=== PATIENT | female | born 1945 | race Caucasian/White ===

== ENCOUNTER 2016-05-07 07:24 | Day surgery (SDC) | payer OTHER ==
[2016-05-07] VITALS (7 sets, daily range): BP systolic 92–117; BP diastolic 32–68; PULSE 65–89; RESP 16–20; TEMP 97.4–97.6; O2SAT 90–99
[~2016-05-07] VITALS: Ht 172.7 cm; Wt 53.2 kg
[~2016-05-07 07:24] MED LIST: MULTTAB67 PO
[2016-05-07] MEDS ORDERED: ceFAZolin 2 GM PREMIX 50 ML - implanted port/tunneled catheter insertion IV SCH (08:00)
[2016-05-07] MEDS ORDERED: SODIUM CHLORIDE 0.9% 1000 ML IV SCH (08:00)
[2016-05-07] MEDS ORDERED: VANCOMYCIN 1000 MG/NS 250 ML - implanted port/tunneled catheter IV SCH ×2 (08:00)
[2016-05-07] MEDS ORDERED: CHLORHEXIDINE GLUCONATE 2 % 1 PACK (2 CLOTHS) TOPICAL SCH (08:00)
[2016-05-07 08:25] LABS: APTT (PATIENT) 29.7 SEC (24.3-30.1); INTERNATIONAL NORMALIZED RATIO 1.1 RATIO
[2016-05-07] MEDS ORDERED: fentaNYL CITRATE 250 MCG/5 ML AMP ONE (09:24)
[2016-05-07] MEDS ORDERED: MIDAZOLAM HCL 5 MG/5 ML VIAL ONE (09:24)
[2016-05-07] MEDS ORDERED: LIDOCAINE 1%/EPINEPHrine 1:100,000 SOLN 20 ML VIAL ONE (09:54)
--- NOTE | 2016-05-07 10:49 | PD.RAD ---
Post Procedure Progress Note Pre Procedure Diagnosis: (1) Lung cancer Post Procedure Diagnosis: (1) Lung cancer Procedure Date: May 07, 2016 Supervising Radiologist: James Wilson Anesthesia: Local, Conscious Sedation Plan of Activity Patient to Unit: ROPU Patient Condition: Good Additional Comments: Port placed via the left subclavian due to right sided mass. port in good position OK for use See PACS Report for procedural detail/treatment James Wilson MD May 07, 2016 10:49
[2016-05-07] MEDS ORDERED: SODIUM CHLORIDE 0.9% FLUSH 5 ML FLUSH IVF PRN (11:00)
--- NOTE | 2016-05-07 13:32 | RADRPT ---
EXAM DATE/TIME: 05/07/2016 09:33 [facility] COMPARISON: No previous studies available for comparison. INDICATIONS : Patient is in need of placement of an Infusaport due to chemotherapy treatment of lung cancer. MEDICAL HISTORY : History of lumbar degeneration. SURGICAL HISTORY : History of lumbar fusion, appendectomy, tonsillectomy, hysterectomy, breast augmentation. ENCOUNTER: Initial ACUITY: 4-6 months PAIN SCORE: 0/10 FLUORO TIME: 1.1 minutes SEDATION TIME: 40 minutes ACCESS: Left subclavian vein SEDATION: 1.) 4 mg midazolam (Versed) IV 2.) 200 mcg fentanyl (Sublimaze) IV Prophylactic antibiotics were administered with appropriate pre-procedure timing. Vancomycin within 2 hours of procedure, Ancef (or alternative) within 1 hour of procedure. DEVICE: 1. 8 [place] Citizen Bard Power Port PROCEDURE : 1. Continuous pulse oximetry and EKG monitoring. 2. Intravenous conscious sedation. 3. Ultrasound guidance for venous access. 4. Fluoroscopic guided implantable central venous port placement. The patient was placed supine. The neck was prepped in sterile fashion. Full sterile technique was u sed, including cap, mask, sterile gloves and gown, and a large sterile sheet. Hand hygiene and 2% ch lorhexidine Betadine was utilized per protocol for cutaneous antisepsis with appropriate dry time for site. The skin and subcutaneous tissues were infiltrated with local anesthetic solution. Under direct ultrasound guidance, a left subclavian vein was accessed. The ultrasound images depictin g access guidance were stored and saved to PACS for permanent record. A subcutaneous pocket was crea russ using blunt dissection. The port was introduced to the pocket. The catheter tubing was fed thro ugh a subcutaneous tunnel to the venotomy site. The catheter tubing was cut to a suitable length and then was introduced through a valved Peel-Away sheath and positioned with catheter tubing tip at the cavo-atrial junction level. The pocket incision was closed with subcuticular Vicryl suture. Steri- Strips were applied. The port was flushed and locked with heparin solution per protocol. Sterile dr essing was applied to the site. The patient tolerated the procedure well. Conscious sedation was performed with the prescribed dosages and duration as above. The patient ion ated the procedure well and there were no complications. EKG and oximetry remained stable throughout the procedure. The patient was sent to post anesthesia recovery in stable condition. CONCLUSION: Uncomplicated ultrasound and fluoroscopic guided implanted central venous port catheter placement as described in detail above. An 8 [place] Citizen Power port was placed. James Wilson MD on May 07, 2016 at 13:30 Board Certified Radiologist. This report was verified electronically.
== END 2016-05-07 13:40 | disposition home or self-care (01) ==
LOC: HROP 07:24 → HRIP 07:24 → HROP 13:40
PROVIDERS: ATTEND Internal Medicine
DX: Z45.2 Encounter for adjustment and management of vascular access device (principal); C34.90 Malignant neoplasm of unspecified part of unspecified bronchus or lung; Z79.01 Long term (current) use of anticoagulants
CPT/HCPCS: 36561; 76937; 77001; 85610; 85730; 99152; 99153; C1788; J0690; J1642; J2250; J3010; J3370; J7030; J7050

== ENCOUNTER 2016-06-22 15:23 | Emergency (ER) | payer OTHER ==
[~2016-06-22] VITALS: Ht 172.7 cm; Wt 52.0 kg
[2016-06-22 15:26] VITALS: BP 90/52; PULSE 110; RESP 17; TEMP 97.6; O2SAT 98
[2016-06-22] MEDS ORDERED: DEXA4TAB PO (15:45)
[2016-06-22] MEDS ORDERED: OXYC-432 PO (15:45)
[2016-06-22] MEDS ORDERED: PROC10TA PO (15:45)
[2016-06-22] MEDS ORDERED: ZOFR8TAB PO (15:45)
[2016-06-22] MEDS ORDERED: TRAM50TA PO (15:45)
[2016-06-22] MEDS ORDERED: SODIUM CHLORID 0.9% 500 ML INJ 500 ML IV ONE (15:45)
--- NOTE | 2016-06-22 15:54 | PD ---
HPI Chief Complaint: General Weakness Time Seen by Provider: 15:47 Travel History International Travel<30 days: No Contact w/Intl Traveler<30days: No Traveled to known affect area: No History of Present Illness HPI 70 year old female presents to the emergency department for evaluation of generalized weakness. Patient states this has been ongoing for a few months, but her son made her come in today to get it checked out. Patient is undergoing chemotherapy for non small cell lung CA. She states she stopped radiation 2 weeks ago. Patient's oncologist is Dr. Rebolledo. Patient denies any fevers, chest pain, SOB, abdominal pain, nausea, vomiting, diarrhea. She denies any headache or syncopal episodes. She denies any recent fall. Patient states she is not eating. PFSH Past Medical History Cancer: Yes (lung) Cardiovascular Problems: No Chemotherapy: Yes (2 weeks ago) Diabetes: No Endocrine: No Gastrointestinal Disorders: No Genitourinary: No Hepatitis: No Hiatal Hernia: No Hypertension: No Immune Disorder: No Medical other: No Musculoskeletal: Yes (HX MULTIPLE INJURIES) Neurologic: No Psychiatric: No Reproductive: No Respiratory: Yes (lung ca) Immunizations Current: Yes Thyroid Disease: No ?: Not Past Surgical History Abdominal Surgery: Yes (APPENDECTOMY) AICD: No Gynecologic Surgery: Yes (HYSTERECTOMY) Hysterectomy: Yes Joint Replacement: No Oral Surgery: Yes (TONSILECTOMY) Pacemaker: No Thoracic Surgery: Yes (breast implants) Other Surgery: Yes Social History Alcohol Use: No Tobacco Use: No Substance Use: No Allergies-Medications (Allergen,Severity, Reaction): Coded Allergies: No Known Allergies (Unverified , 05/07/16) Reported Meds & Prescriptions Reported Meds & Active Scripts Active Reported Dexamethasone 4 Mg Tab 4 Mg PO DIRECTED Zofran (Ondansetron HCl) 8 Mg Tab 8 Mg PO TID Oxycodone-Acetaminophen 5-325 mg Tab 1 Tab PO Q4H PRN Tramadol (Tramadol HCl) 50 Mg Tab 50 Mg PO Q4H PRN Prochlorperazine Maleate 10 Mg Tab 10 Mg PO Q4H PRN Review of Systems Except as stated in HPI: all other systems reviewed are Neg Physical Exam Narrative GENERAL: Thin elderly female patient, ambulatory and in no acute distress. Afebrile. SKIN: Focused skin assessment warm/dry. HEAD: Normocephalic. Atraumatic. EYES: No scleral icterus. No injection or drainage. NECK: Supple, trachea midline. No JVD or lymphadenopathy. CARDIOVASCULAR: Regular rate and rhythm without murmurs, gallops, or rubs. RESPIRATORY: Breath sounds equal bilaterally. No accessory muscle use. Lung sounds are clear to auscultation throughout. GASTROINTESTINAL: Abdomen soft and nondistended. She does have epigastric tenderness to palpation. MUSCULOSKELETAL: No cyanosis, or edema. BACK: Nontender without obvious deformity. No CVA tenderness. Data Data Last Documented VS Vital Signs Date Time Temp Pulse Resp B/P Pulse Ox O2 Delivery O2 Flow Rate FiO2 06/22/16 16:05 18 97 Nasal Cannula 2 06/22/16 15:26 97.6 110 90/52 Orders Electrocardiogram (06/22/16 ) Complete Blood Count With Diff (06/22/16 15:44) Comprehensive Metabolic Panel (06/22/16 15:44) Magnesium (Mg) (06/22/16 15:44) Ckmb (Isoenzyme) Profile (06/22/16 15:44) Troponin I (06/22/16 15:44) Urinalysis - C+S If Indicated (06/22/16 15:44) Chest, Single Ap (06/22/16 15:44) Ecg Monitoring (06/22/16 15:44) Iv Access Insert/Monitor (06/22/16 15:44) Oximetry (06/22/16 15:44) Sodium Chlorid 0.9% 500 Ml Inj (Ns 500 M (06/22/16 15:45) Lipase (06/22/16 15:44) Ct Abd/Pel W Iv Contrast(Rout) (06/22/16 ) Sodium Chlor 0.9% 1000 Ml Inj (Ns 1000 M (06/22/16 16:00) Iohexol 350 Inj (Omnipaque 350 Inj) (06/22/16 17:47) Sodium Chlor 0.9% 1000 Ml Inj (Ns 1000 M (06/22/16 18:15) Potassium Chloride (Kcl) (06/22/16 18:15) Potassium Chloride (Kcl) (06/22/16 18:15) Labs Laboratory Tests Test 06/22/16 06/22/16 15:45 17:03 White Blood Count 10.8 TH/MM3 Red Blood Count 3.13 MIL/MM3 Hemoglobin 8.2 GM/DL Hematocrit 25.0 % Mean Corpuscular Volume 79.6 FL Mean Corpuscular Hemoglobin 26.3 PG Mean Corpuscular Hemoglobin 33.0 % Concent Red Cell Distribution Width 17.5 % Platelet Count 204 TH/MM3 Mean Platelet Volume 7.8 FL Neutrophils (%) (Auto) 80.9 % Lymphocytes (%) (Auto) 7.6 % Monocytes (%) (Auto) 10.5 % Eosinophils (%) (Auto) 0.8 % Basophils (%) (Auto) 0.2 % Neutrophils # (Auto) 8.7 TH/MM3 Lymphocytes # (Auto) 0.8 TH/MM3 Monocytes # (Auto) 1.1 TH/MM3 Eosinophils # (Auto) 0.1 TH/MM3 Basophils # (Auto) 0.0 TH/MM3 CBC Comment DIFF FINAL Differential Comment Sodium Level 129 MEQ/L Potassium Level 3.1 MEQ/L Chloride Level 91 MEQ/L Carbon Dioxide Level 29.0 MEQ/L Anion Gap 9 MEQ/L Blood Urea Nitrogen 10 MG/DL Creatinine 0.60 MG/DL Estimat Glomerular Filtration 99 ML/MIN Rate Random Glucose 123 MG/DL Calcium Level 8.4 MG/DL Magnesium Level 1.7 MG/DL Total Bilirubin 0.2 MG/DL Aspartate Amino Transf 8 U/L (AST/SGOT) Alanine Aminotransferase 25 U/L (ALT/SGPT) Alkaline Phosphatase 99 U/L Total Creatine Kinase 15 U/L Troponin I LESS THAN 0.02 NG/ML Total Protein 6.3 GM/DL Albumin 2.3 GM/DL Lipase 34 U/L Urine Color YELLOW Urine Turbidity CLEAR Urine pH 7.5 Urine Specific [place] 1.000 Urine Protein 30 mg/dL Urine Glucose (UA) NEG mg/dL Urine Ketones NEG mg/dL Urine Occult Blood NEG Urine Nitrite NEG Urine Bilirubin NEG Urine Urobilinogen 2.0 MG/DL Urine Leukocyte Esterase NEG Urine RBC 1 /hpf Urine WBC 2 /hpf Urine Squamous Epithelial 1 /hpf Cells Urine Bacteria RARE /hpf Urine Mucus FEW /lpf Microscopic Urinalysis Comment CULT NOT INDICATED MDM Medical Decision Making Medical Screen Exam Complete: Yes Emergency Medical Condition: Yes Medical Record Reviewed: Yes Interpretation(s) chest x-ray - CONCLUSION: 1. Large mass upper right hemithorax similar in appearance to recent spot films from a Olvgni-z-Oghc placement in April. Basilar atelectasis. CT abdomen/pelvis - CONCLUSION: 1. No acute findings within the abdomen and pelvis. Differential Diagnosis dehydration vs. electrolyte abnormality vs. pneumonia vs. intraabdominal abnormality Narrative Course 70 year old female presents to the emergency department for generalized weakness over several months. She is currently undergoing chemotherapy for lung CA. Patient does have epigastric tenderness to palpation. EKG, CBC, CMP, Lipase, Magnesium, CK, Troponin, UA, chest x-ray, CT abdomen/pelvis are ordered and pending. Patient is given 1 L NS IV bolus. EKG shows sinus tachycardia, HR 106, no acute ST changes. CBC shows HGB 8.2, HCT 25.0. CMP shows hyponatremia of 129, hypokalemia 3.1. Lipase is 34. CK is 15. Troponin is less than 0.02. Magnesium is 1.7. UA is negative for acute infection. Chest x-ray shows large mass upper right hemithorax similar in appearance to recent spot films from a Coecol-i-Vajb placement in April. Basilar atelectasis.. Ct abdomen/pelvis shows no acute findings in the abdomen/ pelvis. Patient is given 2nd liter NS bolus and potassium 50 meq PO. The son at bedside wants patient to be admitted due to decreased appetite. He states he has talked to Dr. Rebolledo about this who made medication changes, but his mother still has no appetite. I discussed this with the patient who is adamant that she wants to go home and be discharged. Based on laboratory and imaging findings, this is reasonable. She is adamant that she does not want to be admitted. She is to follow up with Dr. Rebolledo or return for any worsening of symptoms. She verbalizes agreement and understanding. Diagnosis Primary Impression: Lung cancer Qualified Code: C34.11 - Malignant neoplasm of upper lobe of right lung Additional Impressions: Generalized weakness Decrease in appetite Referrals: Oncologist 2 days Patient Instructions: General Instructions, Non-Small Cell Lung Cancer (ED), Weakness (ED) Additional Instructions: Follow up with Dr. Rebolledo. Return to the emergency department for any acute, worsening of symptoms. Med/Other Pt SpecificInfo: No Change to Meds Disposition: 01 DISCHARGE HOME Condition: Stable RanjanHeather RODAS Jun 22, 2016 15:54
[2016-06-22 15:56] VITALS: O2SAT 97
[2016-06-22] MEDS ORDERED: SODIUM CHLOR 0.9% 1000 ML INJ 1,000 ML IV ONE ×2 (16:00→18:15)
[2016-06-22 16:10] LABS: AUTOMATED NEUTROPHIL # 8.7 TH/MM3 (1.8-7.7); BASOPHIL % 0.2 % (0.0-2.0); EOSINOPHIL # 0.1 TH/MM3 (0-0.4); EOSINOPHIL % 0.8 % (0.0-4.0); HEMO FLAGS DIFF FINAL; LYMPH % 7.6 % (9.0-44.0); LYMPHOCYTE # 0.8 TH/MM3 (1.0-4.8); MEAN CELL VOLUME 79.6 FL (80.0-100.0); MEAN CORPUSCULAR HEMOGLOBIN 26.3 PG (27.0-34.0); MONO % 10.5 % (0.0-8.0); NEUT % 80.9 % (16.0-70.0); PLATELET COUNT 204 TH/MM3 (150-450); RED BLOOD COUNT 3.13 MIL/MM3 (4.00-5.30); RED CELL DISTRIBUTION WIDTH 17.5 % (11.6-17.2); WHITE BLOOD COUNT 10.8 TH/MM3 (4.0-11.0)
[2016-06-22 16:21] LABS: ANION GAP 9 MEQ/L (5-15); AST (GOT) 8 U/L (15-37); BLOOD UREA NITROGEN 10 MG/DL (7-18); CHLORIDE 91 MEQ/L (98-107); GLOMERULAR FILTRATION RATE 99 ML/MIN (>89); MAGNESIUM 1.7 MG/DL (1.5-2.5); POTASSIUM 3.1 MEQ/L (3.5-5.1); SODIUM (NA) 129 MEQ/L (136-145)
[2016-06-22 16:26] LABS: ALKALINE PHOSPHATASE 99 U/L (45-117); ALT (GPT) 25 U/L (10-53); TOTAL BILIRUBIN ADULT 0.2 MG/DL (0.2-1.0)
[2016-06-22 16:29] LABS: CREATINE KINASE 15 U/L (26-192)
--- NOTE | 2016-06-22 16:53 | RADRPT ---
EXAM DATE/TIME: 06/22/2016 16:01 [facility] COMPARISON: [id number] PLCMT, POWERPORT, W US, LEFT, May 07, 2016, 9:33. INDICATIONS : Shortness of breath. MEDICAL HISTORY : None. SURGICAL HISTORY : None. ENCOUNTER: Initial ACUITY: 1 day PAIN SCORE: 0/10 LOCATION: Bilateral chest FINDINGS: Left Pbodjq-f-Oliw tip is in the superior vena cava. There is a large mass in the upper right hemitho rax which is similar to the finding on Ghptza-i-Xcou placement from May 07. Calcified breast imp lants present. Minimal basilar density noted. No pneumothorax. CONCLUSION: 1. Large mass upper right hemithorax similar in appearance to recent spot films from a Fabrde-d-Oacu placement in April. Basilar atelectasis. Jovany Muniz MD on June 22, 2016 at 16:50 Board Certified Radiologist. This report was verified electronically.
[2016-06-22 17:31] LABS: BACTERIA, URINE RARE /hpf; BLOOD, URINE NEG (NEG); COMMENT (UR) CULT NOT INDICATED; CULTURE IF INDICATED CULT NOT INDICATED; GLUCOSE,URINE NEG (NEG); KETONE, URINE NEG (NEG); MUCUS URINE FEW /lpf (OCC); NITRITE,URINE NEG (NEG); PH, URINE 7.5 (5.0-8.5); SQUAMOUS EPITHELIAL CELL URINE 1 /hpf (0-5); URINE COLOR YELLOW (YELLW/STRAW)
[2016-06-22] MEDS ORDERED: IOHEXOL 350 MG/ML 10 ML VIAL (for RAD DIAG) IV ONE (17:47)
--- NOTE | 2016-06-22 17:59 | RADRPT ---
EXAM DATE/TIME: 06/22/2016 17:24 [facility] COMPARISON: No previous studies available for comparison. INDICATIONS : Loss of appetite, nausea, weakness. IV CONTRAST: 85 cc Omnipaque 350 (iohexol) IV ORAL CONTRAST: No oral contrast ingested. RADIATION DOSE: 9.96 CTDIvol (mGy) MEDICAL HISTORY : Carcinoma, lung. SURGICAL HISTORY : Appendectomy. Hysterectomy. ENCOUNTER: Initial ACUITY: 2 weeks PAIN SCALE: 0/10 LOCATION: abdomen. TECHNIQUE: Volumetric scanning of the abdomen and pelvis was performed. Using automated exposure control and ad justment of the mA and/or kV according to patient size, radiation dose was kept as low as reasonably achievable to obtain optimal diagnostic quality images. FINDINGS: There is minimal basilar atelectasis. Densely calcified breast implant capsules. No acute findings in the liver, spleen, adrenals, kidneys or pancreas. Tiny bilateral renal cysts. No calcified gallstones or biliary ductal dilatation. No bowel obstruction, free fluid or free air. No adenopathy. Postoperative laminectomy lower lumbar s pine. Minimal scoliosis. Chronic appearing compression deformity L1 on the left. CONCLUSION: 1. No acute findings within the abdomen and pelvis. Jovany Muniz MD on June 22, 2016 at 17:54 Board Certified Radiologist. This report was verified electronically.
[2016-06-22] MEDS ORDERED: POTASSIUM CHLORIDE 10 MEQ CONTROLLED RELEASE TAB PO ONE (18:15)
[2016-06-22] MEDS ORDERED: POTASSIUM CHLORIDE 20 MEQ CONTROLLED RELEASE TAB PO ONE (18:15)
[2016-06-22 19:06] VITALS: BP 105/51; PULSE 99; RESP 15; O2SAT 98
--- NOTE | 2016-06-23 15:36 | EKG ---
Date Performed: 06/22/2016 Time Performed: 15:45:10 PTAGE: 70 years EKG: SINUS TACHYCARDIA When compared to previous tracing, no significant change. ABNORMAL RHYTHM ECG PREVIOUS TRACING : 02/09/2016 13.19 DOCTOR: Dev Lawson Interpretating Date/Time 06/23/2016 15:35:48
== END 2016-06-22 20:30 | disposition home or self-care (01) ==
LOC: NEPC 15:23
DX: C34.11 Malignant neoplasm of upper lobe, right bronchus or lung (principal); R53.1 Weakness; R63.0 Anorexia; R00.0 Tachycardia, unspecified; Z92.21 Personal history of antineoplastic chemotherapy
CPT/HCPCS: 71010; 74177; 80053; 81001; 82550; 83690; 83735; 84484; 85025; 93005; 96360; 96361; 99285; J1642; J7030; Q9967

== ENCOUNTER 2016-07-23 15:45 | Inpatient (IN) | payer OTHER, MEDICARE ==
[~2016-07-23] VITALS: Ht 172.7 cm; Wt 50.0 kg
[2016-07-23] VITALS (9 sets, daily range): BP systolic 90–120; BP diastolic 42–57; PULSE 87–100; RESP 16–18; TEMP 97.9–99.8; O2SAT 92–99
[~2016-07-23 15:45] MED LIST changes: +DEXA4TAB PO; -MULTTAB67 PO; +OXYC-432 PO; +PROC10TA PO; +TRAM50TA PO; +ZOFR8TAB PO
--- NOTE | 2016-07-23 16:37 | PD ---
HPI Chief Complaint: Abnormal Results Time Seen by Provider: 15:53 Travel History International Travel<30 days: No Contact w/Intl Traveler<30days: No Traveled to known affect area: No History of Present Illness HPI 71-year-old female complaining generalized malaise and weakness and poor appetite. Patient has history of has history of non-small cell lung CVA, COPD and anemia. Patient is on chemotherapy. Patient states that she has not feeling well recently and has poor appetite. Patient has increasing lethargy, generalized malaise and weakness for the past few days. Patient was seen by Dr. Rebolledo, her oncologist today and advised to have blood transfusion and admitted for IV hydration. Patient was receiving blood transfusion over the oncology unit and started having hypotension. Blood pressure was in the 80s. Patient was transferred to [place] emergency room for evaluation and admission. Patient denies any headache. Patient has recurrent chest pain secondary to carcinoma and has been taking Percocet for pain. Patient denies any shortness of breath. Patient denies abdominal pain. Patient denies any nausea vomiting diarrhea. Patient denies any focal weakness or numbness of extremity. PFSH Past Medical History Cancer: Yes (lung) Cardiovascular Problems: No Chemotherapy: Yes (2 weeks ago) Diabetes: No Diminished Hearing: No Endocrine: No Gastrointestinal Disorders: No Genitourinary: No Hepatitis: No Hiatal Hernia: No Hypertension: No Immune Disorder: No Musculoskeletal: Yes (HX MULTIPLE INJURIES) Neurologic: No Psychiatric: No Reproductive: No Respiratory: Yes (lung ca) Immunizations Current: Yes Thyroid Disease: No Tetanus Vaccination: > 5 Years Influenza Vaccination: No ?: Not Past Surgical History Abdominal Surgery: Yes (APPENDECTOMY) AICD: No Gynecologic Surgery: Yes (HYSTERECTOMY) Hysterectomy: Yes Joint Replacement: No Oral Surgery: Yes (TONSILECTOMY) Pacemaker: No Thoracic Surgery: Yes (breast implants) Other Surgery: Yes Social History Alcohol Use: No Tobacco Use: Yes Substance Use: No Allergies-Medications (Allergen,Severity, Reaction): Coded Allergies: No Known Allergies (Unverified , 06/22/16) Reported Meds & Prescriptions Reported Meds & Active Scripts Active Reported Dexamethasone 4 Mg Tab 4 Mg PO DIRECTED Zofran (Ondansetron HCl) 8 Mg Tab 8 Mg PO TID Oxycodone-Acetaminophen 5-325 mg Tab 1 Tab PO Q4H PRN Tramadol (Tramadol HCl) 50 Mg Tab 50 Mg PO Q4H PRN Prochlorperazine Maleate 10 Mg Tab 10 Mg PO Q4H PRN Review of Systems General / Constitutional: No: Fever Eyes: No: Visual changes HENT: No: Headaches Cardiovascular: Positive: Chest Pain or Discomfort Respiratory: No: Shortness of Breath Gastrointestinal: No: Abdominal Pain Genitourinary: No: Dysuria Musculoskeletal: No: Pain Skin: No Rash Neurologic: No: Weakness Psychiatric: No: Depression Endocrine: No: Polydipsia Hematologic/Lymphatic: No: Easy Bruising Physical Exam Narrative GENERAL: Well-nourished, well-developed patient. SKIN: Focused skin assessment warm/dry. Patient is pale. HEAD: Normocephalic. EYES: No scleral icterus. No injection or drainage. NECK: Supple, trachea midline. No JVD or lymphadenopathy. CARDIOVASCULAR: Regular rate and rhythm without murmurs, gallops, or rubs. RESPIRATORY: Breath sounds equal bilaterally. No accessory muscle use. GASTROINTESTINAL: Abdomen soft, non-tender, nondistended. MUSCULOSKELETAL: No cyanosis, or edema. BACK: Nontender without obvious deformity. No CVA tenderness. Neurologic exam: Patient's awake and alert oriented 3. No obvious focal neurological deficit. Data Data Last Documented VS Vital Signs Date Time Temp Pulse Resp B/P Pulse Ox O2 Delivery O2 Flow Rate FiO2 07/23/16 16:05 Room Air 07/23/16 15:59 97.9 87 18 90/54 Orders Admit Order (Ed Use Only) (07/23/16 16:14) Ns + Kcl Inj (07/23/16 16:30) [facility] Medical Decision Making Medical Screen Exam Complete: Yes Emergency Medical Condition: Yes Medical Record Reviewed: Yes Interpretation(s) Laboratory done yesterday shows hemoglobin 7.8 hematocrit 23.7. WBC 2.9. Sodium 129. Potassium 3.3. Chloride 90. Differential Diagnosis Differential diagnosis including anemia, electrolyte abnormality, dehydration. Narrative Course 71-year-old female with generalized malaise and weakness lethargy. Blood test done today at the oncology center shows anemia and hyponatremia and hypokalemia. Patient will be admitted to the oncologist and will receive blood transfusion and IV fluid and potassium and sodium replacement. Diagnosis Primary Impression: Severe anemia Additional Impressions: Hyponatremia Hypokalemia Randall Diaz MD July 23, 2016 16:37
[2016-07-23] MEDS: NS + KCL 20 MEQ INJ 1,000 ML IV SCH ×2 (16:58→23:22)
[2016-07-23] MEDS ORDERED: NYST1000 SWISH-SWAL (17:14)
[2016-07-23] MEDS ORDERED: ONDANSETRON HCL 4 MG/2 ML VIAL IV PRN (18:30)
[2016-07-23] MEDS ORDERED: SODIUM CHLORIDE 0.9% FLUSH 10 ML FLUSH IVF PRN (18:30)
[2016-07-23] MEDS ORDERED: ACETAMINOPHEN 325 MG TAB PO PRN (18:30)
[2016-07-23] MEDS ORDERED: SODIUM CHLOR 0.9% 250 ML INJ 250 ML IV ONE (18:30)
[2016-07-23] MEDS: SODIUM CHLORIDE 0.9% FLUSH 10 ML FLUSH IV FLUSH SCH (21:14)
[2016-07-24] VITALS (10 sets, daily range): BP systolic 83–106; BP diastolic 42–57; PULSE 75–93; RESP 15–20; TEMP 98.1–99.5; O2SAT 92–97
[2016-07-24] MEDS: SODIUM CHLOR 0.9% 1000 ML INJ 1,000 ML IV SCH ×2 (00:41→23:49)
[2016-07-24] MEDS: ENOXAPARIN SODIUM 30 MG/0.3 ML SYRINGE SQ SCH (00:46)
[2016-07-24] MEDS ORDERED: SODIUM CHLORIDE 0.9% FLUSH 10 ML FLUSH IV FLUSH PRN ×2 (03:30)
[2016-07-24 05:25] LABS: AUTOMATED NEUTROPHIL # 1.8 TH/MM3 (1.8-7.7); BASOPHIL % 0.2 % (0.0-2.0); EOSINOPHIL % 0.6 % (0.0-4.0); HEMO FLAGS DIFF FINAL; LYMPH % 17.7 % (9.0-44.0); LYMPHOCYTE # 0.6 TH/MM3 (1.0-4.8); MEAN CELL VOLUME 84.9 FL (80.0-100.0); MEAN CORPUSCULAR HEMOGLOBIN 28.7 PG (27.0-34.0); MEAN CORPUSCULAR HGB CONC 33.8 % (32.0-36.0); MONO % 23.9 % (0.0-8.0); NEUT % 57.6 % (16.0-70.0); PLATELET COUNT 231 TH/MM3 (150-450); RED BLOOD COUNT 3.65 MIL/MM3 (4.00-5.30); RED CELL DISTRIBUTION WIDTH 18.8 % (11.6-17.2); WHITE BLOOD COUNT 3.2 TH/MM3 (4.0-11.0)
[2016-07-24 06:17] LABS: ALKALINE PHOSPHATASE 102 U/L (45-117); ALT (GPT) 24 U/L (10-53); ANION GAP 8 MEQ/L (5-15); AST (GOT) 14 U/L (15-37); BICARBONATE 29.4 MEQ/L (21.0-32.0); BLOOD UREA NITROGEN 7 MG/DL (7-18); CHLORIDE 97 MEQ/L (98-107); GLOMERULAR FILTRATION RATE 189 ML/MIN (>89); SODIUM (NA) 134 MEQ/L (136-145); TOTAL BILIRUBIN ADULT 0.4 MG/DL (0.2-1.0)
[2016-07-24 06:48] LABS: POTASSIUM 2.9 MEQ/L (3.5-5.1)
--- NOTE | 2016-07-24 07:33 | RADRPT ---
EXAM DATE/TIME: 07/24/2016 06:57 [facility] COMPARISON: CHEST SINGLE AP, June 22, 2016, 16:01. INDICATIONS : Lethargy. Mild shortness of breath. MEDICAL HISTORY : Carcinoma, lung. SURGICAL HISTORY : Appendectomy. Hysterectomy. ENCOUNTER: Subsequent ACUITY: 2 days PAIN SCORE: 0/10 LOCATION: Bilateral chest FINDINGS: A single view of the chest demonstrates large mass with adjacent consolidation. Left-sided Infuse-a-P ort catheter are unchanged. Lung bases are clear. Osseous structures are intact. CONCLUSION: 1. Large mass again seen within the right upper lobe. 2. There is some new adjacent consolidation right upper lobe. Eran Vargas MD on July 24, 2016 at 7:31 Board Certified Radiologist. This report was verified electronically.
[2016-07-24] MEDS: DEXAMETHASONE 4 MG TAB PO SCH ×2 (09:35→22:06)
[2016-07-24] MEDS: MEGESTROL ACETATE SUSP 400 MG/10 ML CUP PO SCH (09:35)
[2016-07-24] MEDS: SODIUM CHLORIDE 0.9% FLUSH 10 ML FLUSH IV FLUSH SCH ×2 (09:35→22:06)
[2016-07-24] MEDS: POTASSIUM CHLOR 20 MEQ PREMIX 100 ML IV SCH ×2 (09:36→12:04)
--- NOTE | 2016-07-24 20:04 | PD.ONC.PN ---
Subjective Subjective Remarks Pt seen and examined earlier today and this note reflects that encounter. Tmax 99.8 overnight. Feels better after getting the blood. No complaints. Wants to go home. Objective Data Date Time Temp Pulse Resp B/P Pulse Ox O2 Delivery O2 Flow Rate FiO2 07/24/16 17:35 95 21 07/24/16 15:00 98.1 85 20 96/52 96 07/24/16 12:00 98.7 75 20 106/53 95 07/24/16 10:45 96 07/24/16 08:45 93 07/24/16 08:00 99.5 91 20 87/47 97 07/24/16 08:00 88/42 07/24/16 07:59 89 83/56 07/24/16 04:00 98.6 91 18 93/44 92 07/24/16 03:56 93 21 07/23/16 23:55 99.0 98 18 104/46 93 07/23/16 21:39 99.7 97 16 96/47 98 07/23/16 21:06 99.8 96 16 97/46 07/23/16 20:58 97 07/24/16 07/24/16 07/24/16 07:00 15:00 23:00 Intake Total 1055 ml Output Total 600 ml 700 ml Balance 455 ml -700 ml Result Diagram: 07/24/160 07/24/16439 Laboratory Results Laboratory Tests Test 07/24/16 04:40 White Blood Count 3.2 TH/MM3 Red Blood Count 3.65 MIL/MM3 Hemoglobin 10.5 GM/DL Hematocrit 31.0 % Mean Corpuscular Volume 84.9 FL Mean Corpuscular Hemoglobin 28.7 PG Mean Corpuscular Hemoglobin 33.8 % Concent Red Cell Distribution Width 18.8 % Platelet Count 231 TH/MM3 Mean Platelet Volume 7.9 FL Neutrophils (%) (Auto) 57.6 % Lymphocytes (%) (Auto) 17.7 % Monocytes (%) (Auto) 23.9 % Eosinophils (%) (Auto) 0.6 % Basophils (%) (Auto) 0.2 % Neutrophils # (Auto) 1.8 TH/MM3 Lymphocytes # (Auto) 0.6 TH/MM3 Monocytes # (Auto) 0.8 TH/MM3 Eosinophils # (Auto) 0.0 TH/MM3 Basophils # (Auto) 0.0 TH/MM3 CBC Comment DIFF FINAL Differential Comment Sodium Level 134 MEQ/L Potassium Level 2.9 MEQ/L Chloride Level 97 MEQ/L Carbon Dioxide Level 29.4 MEQ/L Anion Gap 8 MEQ/L Blood Urea Nitrogen 7 MG/DL Creatinine 0.34 MG/DL Estimat Glomerular Filtration 189 ML/MIN Rate Random Glucose 105 MG/DL Calcium Level 8.1 MG/DL Total Bilirubin 0.4 MG/DL Aspartate Amino Transf 14 U/L (AST/SGOT) Alanine Aminotransferase 24 U/L (ALT/SGPT) Alkaline Phosphatase 102 U/L Total Protein 5.6 GM/DL Albumin 1.8 GM/DL Imaging Studies Last 24 hours Impressions Chest X-Ray 07/24/16 0700 Signed Impressions: Service Date/Time: Sunday, July 24, 2016 06:57 - CONCLUSION: 1. Large mass again seen within the right upper lobe. 2. There is some new adjacent consolidation right upper lobe. Eran Vargas MD Administered Medications Medications (Trade) Dose Ordered Sig/Khanh Route PRN Reason Start Time Stop Time Status Last Admin Dose Admin Acetaminophen (Tylenol) 650 mg Q4H PRN PO Temp>101F, Headache 07/23/16 18:30 07/23/16 21:12 Sodium Chloride (NS Flush) 2 ml BID IV FLUSH 07/23/16 21:00 07/24/16 09:35 Megestrol Acetate (Megace Liq) 400 mg DAILY PO 07/24/16 09:00 07/24/16 09:35 Enoxaparin Sodium 30 mg 30 mg Q24H SQ 07/24/16 00:00 07/24/16 00:46 Sodium Chloride (NS 1000 ml Inj) 1,000 ml @ 42 mls/hr [id number] IV 07/24/16 00:00 07/24/16 00:41 Dexamethasone (Decadron) 4 mg Q12HR PO 07/24/16 09:00 07/24/16 09:35 Sodium Chloride (NS Flush) 5 ml UNSCH PRN IV FLUSH NEEDED 07/24/16 03:30 07/24/16 04:43 Objective Remarks GENERAL: Older female, sitting up in bed in no distress. SKIN: Warm and dry. HEAD: Normocephalic. EYES: No injection or drainage. NECK: Supple, trachea midline. CARDIOVASCULAR: +S1/S2. RESPIRATORY: Diminished on the R side. Breathing unlabored. GASTROINTESTINAL: Abdomen soft, non-tender, nondistended. EXTREMITIES: No cyanosis, or edema. NEUROLOGICAL: A&Ox3. Normal speech. Moving extremities. Assessment/Plan Problem List: (1) Lung cancer Status: Acute Plan: -- NSCLC diagnosed in December 2015. -- She has been getting concurrent chemo and XRT outpatient. -- Last chemotherapy with carboplatin was /. -- Lately has had worsening performance status. Decreased appetite. -- Admitted for hypotension while she was getting blood transfusion. (2) Generalized weakness Status: Acute (3) Decrease in appetite Status: Acute (4) Hypokalemia Status: Acute (5) Hyponatremia Status: Acute (6) Severe anemia Status: Acute (7) Malnutrition Status: Acute (8) Physical deconditioning Status: Acute Assessment 71 y/o female with history of lung cancer admitted for hypotension and dehydration. Plan 1. Dietitian consulted d/t decreased appetite, worsening Albumin. 2. Pt feeling overall better after getting blood transfusion. Will continue to monitor CBC while inpatient. 3. She will be a poor candidate for future chemotherapy unless performance status improves. 4. Will replace potassium IV today. Continue IVF for hypotension. Attending Statement The exam, history, and the medical decision-making described in the above note were completed with the assistance of the mid-level provider. I reviewed and agree with the findings presented. I attest that I had a [id number] encounter with the patient on the same day, and personally performed and documented my assessment and findings in the medical record. Britany Velazquez July 24, 2016 20:04 Ha Rebolledo MD July 24, 2016 23:54
[2016-07-24] MEDS: MIRTAZAPINE 15 MG TAB PO SCH (22:05)
[2016-07-25] VITALS: BP 128/59; PULSE 76; RESP 16; TEMP 98.4; O2SAT 96
[2016-07-25] MEDS: ENOXAPARIN SODIUM 30 MG/0.3 ML SYRINGE SQ SCH (00:26)
[2016-07-25] MEDS: AZITHROMYCIN INJ 500 MG in SODIUM CHLOR 0.9% 250 ML INJ 250 ML IV SCH (00:31)
[2016-07-25] MEDS: SODIUM CHLOR 0.9% 1000 ML INJ 1,000 ML IV SCH (00:38)
[2016-07-25] MEDS: cefTRIAXone INJ 1,000 MG in SODIUM CHLORIDE 0.9% INJ 100 ML IV SCH (00:38)
[2016-07-25 04:00] VITALS: BP 103/59; PULSE 81; RESP 16; TEMP 98; O2SAT 96
--- NOTE | 2016-07-25 06:19 | MH ---
cc: NIMISHA LOO DATE OF ADMISSION: 07/23/2016 DATE OF 1945. REASON FOR ADMISSION Patient with diagnosis of Stage IV lung cancer. She is currently undergoing chemotherapy. She is being admitted with lethargy, dyspnea, hypotension and severe anemia. HISTORY OF PRESENT ILLNESS This is a 70-year-old female who has a diagnosis of lep-xxuoe-zioj lung cancer of unknown subtype. This was a necrotic tumor. She is currently receiving chemotherapy treatments. She had presented with progressive weight loss, loss of appetite and cough in December of 2015. She was found to have a right upper lobe mass which was quite big at 10.8 x 8.4 cm. She also had hilar adenopathy. She underwent biopsy which confirmed necrotic ckl-[id number]-ureu lung cancer. This was thought to be Stage III disease and the patient was started on concurrent chemotherapy and radiation treatments. Her performance status declined and her treatments were halted. She has resumed treatment with carboplatin and Alimta and has now restarted her radiation treatments. She now presents with progressive weakness, lethargy, hypotension. She was found to be severely anemic. The patient has poor oral intake and she has lost weight. The patient was admitted to the hospital. She was found to be hypotensive in the clinic and was given 2 units of packed red blood cells. Her hemoglobin had improved and this morning she was hypotensive obtain. Additional IV fluid bolus was given. Her blood pressure has improved and now it is 105/57. Procalcitonin was ordered. We are drawing two sets of the blood cultures. I have reviewed the chest x-ray. There is concern for consolidated pneumonia in the right upper lobe. The patient will be started on IV antibiotics. She had a CT of the abdomen and pelvis on admission that did not show any acute abnormality. REVIEW OF SYSTEMS A comprehensive 14-point review of systems was completed which is negative except as described in the HPI. PAST MEDICAL HISTORY 1. History of Stage IV lung cancer. 2. COPD. 3. Tobacco abuse. PAST SURGICAL HISTORY Lung biopsy. MEDICATIONS Medications were reviewed in the EMR. ALLERGIES No known drug allergies. PHYSICAL EXAMINATION VITAL SIGNS: Blood pressure is 105/57, pulse is in the 80s, temperature is 98.4. Earlier her blood pressure was 83/56. GENERAL: Cachectic, frail elderly female who appears acutely ill. HEENT: Pupils are equal, round, reactive to light. EOMI. No oral thrush. No oral lesions. NECK: Supple. No JVD. No bruits. No lymphadenopathy. CHEST: Rhonchi heard in right upper lobe. Bilateral upper lobe expiratory wheezing. CARDIAC: S1-S2. Regular rate and rhythm. ABDOMEN: Soft, nontender, nondistended. Bowel sounds are present. EXTREMITIES: Without any edema, erythema or cyanosis. SKIN: Without any petechiae, lesion or bruises. NEURO: No focal deficits. PSYCHIATRIC: Mood and affect appropriate. LABORATORY DATA WBC 3.2, hemoglobin 10.5, MCV 84.9, platelet count 231. Serum chemistries show sodium of 134, potassium 2.9, chloride 97, creatinine 0.34, total bilirubin 0.4, AST is 14, ALT 24, total protein 5.6, albumin is 1.8. Coags show PT of 12, INR 1.1, PTT 29.7. UA shows rare bacteria. Leukocyte esterase negative, nitrite negative. IMAGING STUDIES Reviewed in the EMR. ASSESSMENT AND PLAN This is a 71-year-old female with a history of Stage III lung cancer who has been treated with concurrent chemotherapy and radiation treatments. She is being admitted with multiple issues as stated above. 1. Hypotension, lethargy and right upper lobe consolidated pneumonia. We will obtain blood cultures, start IV antibiotics, IV fluid resuscitation. 2. Acute anemia. The patient was given 2 units of packed red blood cells. We will continue to monitor hemoglobin. We will transfuse accordingly if the patient becomes symptomatic or hemoglobin drops below 7.5. 3. Poor oral intake. Malnutrition. Dietary consult. Start Ensure Plus t.i.d. with meals. I will start her on Remeron as well as Megace. 4. Physical deconditioning. Consult PT, 5. Hypokalemia. Replace IV potassium. Check daily electrolytes. Check magnesium and phosphorus. 6. DVT prophylaxis. Lovenox 30 subcu daily. Further recommendations will be made based on the patient's clinical status. MD JOSUE Lam/SALVADOR /1:13 AM /6:02 AM
[2016-07-25 06:22] LABS: AUTOMATED NEUTROPHIL # 2.2 TH/MM3 (1.8-7.7); BASOPHIL % 0.4 % (0.0-2.0); HEMATOCRIT 32.5 % (35.0-46.0); HEMO FLAGS DIFF FINAL; LYMPH % 12.2 % (9.0-44.0); LYMPHOCYTE # 0.3 TH/MM3 (1.0-4.8); MEAN CELL VOLUME 85.8 FL (80.0-100.0); MEAN CORPUSCULAR HEMOGLOBIN 28.2 PG (27.0-34.0); MEAN CORPUSCULAR HGB CONC 32.8 % (32.0-36.0); NEUT % 81.4 % (16.0-70.0); PLATELET COUNT 319 TH/MM3 (150-450); RED BLOOD COUNT 3.79 MIL/MM3 (4.00-5.30); RED CELL DISTRIBUTION WIDTH 19.4 % (11.6-17.2); WHITE BLOOD COUNT 2.6 TH/MM3 (4.0-11.0)
[2016-07-25 06:55] LABS: BICARBONATE 25.9 MEQ/L (21.0-32.0); POTASSIUM 4.1 MEQ/L (3.5-5.1)
[2016-07-25 08:53] VITALS: BP 109/53; PULSE 86; RESP 18; TEMP 96.7; O2SAT 97
[2016-07-25] MEDS: SODIUM CHLORIDE 0.9% FLUSH 10 ML FLUSH IV FLUSH SCH ×2 (09:00→20:59)
[2016-07-25] MEDS: MEGESTROL ACETATE SUSP 400 MG/10 ML CUP PO SCH (09:41)
[2016-07-25] MEDS: DEXAMETHASONE 4 MG TAB PO SCH ×2 (09:41→20:58)
--- NOTE | 2016-07-25 11:53 | PD.ONC.PN ---
Subjective Subjective Remarks Afebrile overnight. Patient feeling tired of being in the hospital. She wants to be discharged home with home healthcare. Objective Data Date Time Temp Pulse Resp B/P Pulse Ox O2 Delivery O2 Flow Rate FiO2 07/25/16 08:53 96.7 86 18 109/53 97 07/25/16 04:00 98.0 81 16 103/59 96 07/25/16 00:00 98.4 76 16 128/59 96 07/24/16 20:00 98.4 82 15 105/57 96 07/24/16 20:00 85 07/24/16 17:35 95 21 07/24/16 15:00 98.1 85 20 96/52 96 07/24/16 12:00 98.7 75 20 106/53 95 Result Diagram: 07/25/16 0530 07/25/16 0530 Laboratory Results Laboratory Tests Test 07/25/16 05:30 White Blood Count 2.6 TH/MM3 Red Blood Count 3.79 MIL/MM3 Hemoglobin 10.7 GM/DL Hematocrit 32.5 % Mean Corpuscular Volume 85.8 FL Mean Corpuscular Hemoglobin 28.2 PG Mean Corpuscular Hemoglobin 32.8 % Concent Red Cell Distribution Width 19.4 % Platelet Count 319 TH/MM3 Mean Platelet Volume 7.8 FL Neutrophils (%) (Auto) 81.4 % Lymphocytes (%) (Auto) 12.2 % Monocytes (%) (Auto) 6.0 % Eosinophils (%) (Auto) 0.0 % Basophils (%) (Auto) 0.4 % Neutrophils # (Auto) 2.2 TH/MM3 Lymphocytes # (Auto) 0.3 TH/MM3 Monocytes # (Auto) 0.2 TH/MM3 Eosinophils # (Auto) 0.0 TH/MM3 Basophils # (Auto) 0.0 TH/MM3 CBC Comment DIFF FINAL Differential Comment Sodium Level 139 MEQ/L Potassium Level 4.1 MEQ/L Chloride Level 107 MEQ/L Carbon Dioxide Level 25.9 MEQ/L Anion Gap 6 MEQ/L Blood Urea Nitrogen 8 MG/DL Creatinine 0.30 MG/DL Estimat Glomerular Filtration 219 ML/MIN Rate Random Glucose 168 MG/DL Calcium Level 8.8 MG/DL Phosphorus Level 2.1 MG/DL Magnesium Level 2.0 MG/DL Administered Medications Medications (Trade) Dose Ordered Sig/Khanh Route PRN Reason Start Time Stop Time Status Last Admin Dose Admin Acetaminophen (Tylenol) 650 mg Q4H PRN PO Temp>101F, Headache 07/23/16 18:30 07/23/16 21:12 Sodium Chloride (NS Flush) 2 ml BID IV FLUSH 07/23/16 21:00 07/24/16 22:06 Megestrol Acetate (Megace Liq) 400 mg DAILY PO 07/24/16 09:00 07/25/16 09:41 Enoxaparin Sodium 30 mg 30 mg Q24H SQ 07/24/16 00:00 07/25/16 00:26 Sodium Chloride (NS 1000 ml Inj) 1,000 ml @ 42 mls/hr [id number] IV 07/24/16 00:00 07/25/16 00:38 Mirtazapine (Remeron) 15 mg HS PO 07/24/16 21:00 07/24/16 22:05 Dexamethasone (Decadron) 4 mg Q12HR PO 07/24/16 09:00 07/25/16 09:41 Sodium Chloride 5 ml 5 ml UNSCH PRN IV FLUSH NEEDED 07/24/16 03:30 07/24/16 04:43 Ceftriaxone Sodium 1000 mg/ Sodium Chloride 100 ml @ 200 mls/hr Q24H IV 07/25/16 00:00 07/25/16 00:38 Azithromycin/ Sodium Chloride (Zithromax Inj/ NS 250 ml Inj) 250 ml @ 250 mls/hr Q24H IV 07/25/16 00:00 07/25/16 00:31 Objective Remarks GENERAL: Elderly female, sitting up in bed in [facility]. SKIN: Warm and dry. HEAD: Normocephalic. EYES: No scleral icterus. No injection or drainage. NECK: Supple, trachea midline. CARDIOVASCULAR: Regular rate and rhythm RESPIRATORY: Breath sounds equal bilaterally. No accessory muscle use. GASTROINTESTINAL: Abdomen soft, non-tender, nondistended. EXTREMITIES: No cyanosis NEUROLOGICAL: No obvious focal deficit. Awake, alert, and oriented x3. Assessment/Plan Problem List: (1) Lung cancer Status: Acute Plan: -- NSCLC diagnosed in December 2015. -- She has been getting concurrent chemo and XRT outpatient. -- Last chemotherapy with carboplatin was 07/09. -- Lately has had worsening performance status. Decreased appetite. -- Admitted for hypotension while she was getting blood transfusion. (2) Generalized weakness Status: Acute Plan: --Hypotension, lethargy and right upper lobe consolidated pneumonia. --on IV abx + IVF --await blood cultures (3) Malnutrition Status: Acute Plan: --Dietary consult. --Ensure Plus t.i.d. with meals. --Remeron and Megace. (4) Severe anemia Status: Acute Plan: --was given 2 units of packed red blood cells. --will transfuse accordingly if the patient becomes symptomatic or hemoglobin drops below 7.5. (5) Physical deconditioning Status: Acute Plan: --PT following--recommend rehab versus home with [facility] Assessment 71 y/o female with lung cancer admitted for hypotension and dehydration as well as dyspnea and severe anemia --presented with progressive weight loss, loss of appetite and cough in December of 2015. was found to have a right upper lobe mass which was quite big at 10.8 x 8.4 cm. +hilar adenopathy. --underwent biopsy which confirmed necrotic [id number] lung cancer. was thought to be Stage III disease and the patient was started on concurrent chemotherapy and radiation treatments. --performance status declined and her treatments were halted. --has resumed treatment with carboplatin and Alimta and has now restarted her radiation treatments. --now presents with progressive weakness, lethargy, hypotension. --found to be severely anemic. has poor oral intake and she has lost weight. --hypotensive in the clinic and was given 2 units of packed red blood cells. --chest x-ray. concern for consolidated pneumonia in the right upper lobe. ( on IV abx) Attending Statement The exam, history, and the medical decision-making described in the above note were completed with the assistance of the mid-level provider. I reviewed and agree with the findings presented. I attest that I had a [id number] encounter with the patient on the same day, and personally performed and documented my assessment and findings in the medical record. Feels somewhat better today Malnutrition--appetite improving, on steroids, mirtazapine and Megace Blood cultures pending Azithro and Rocephin for CAP Continue PT for deconditioning Replace phosphorus Hb stable no longer Hypotensive Plans for D/C home in AM with Oral Azithromycin 500mg X 5 days if blood cultures negative Home Health with PT f/u in clinic in 1 week. discussed with rn d/w patient Charis Storey July 25, 2016 11:52 Ha Rebolledo MD July 25, 2016 23:01
[2016-07-25 12:00] VITALS: BP 108/53; PULSE 77; RESP 16; TEMP 97; O2SAT 99
[2016-07-25] MEDS ORDERED: MAGNESIUM SULFATE 1 GM PREMIX 100 ML IV ONE (13:00)
[2016-07-25 16:00] VITALS: BP 100/57; PULSE 76; RESP 18; TEMP 96.6; O2SAT 98
[2016-07-25] MEDS ORDERED: PANTOPRAZOLE SODIUM 40 MG VIAL IV PUSH SCH (17:00)
[2016-07-25 20:00] VITALS: BP 110/50; PULSE 84; RESP 18; TEMP 96.7; O2SAT 98
[2016-07-25] MEDS: MIRTAZAPINE 15 MG TAB PO SCH (20:56)
[2016-07-26] MEDS: ENOXAPARIN SODIUM 30 MG/0.3 ML SYRINGE SQ SCH (00:18)
[2016-07-26] MEDS: AZITHROMYCIN INJ 500 MG in SODIUM CHLOR 0.9% 250 ML INJ 250 ML IV SCH (00:18)
[2016-07-26] MEDS: cefTRIAXone INJ 1,000 MG in SODIUM CHLORIDE 0.9% INJ 100 ML IV SCH (00:19)
[2016-07-26 04:00] VITALS: BP 99/51; PULSE 83; RESP 16; TEMP 96.8; O2SAT 97
[2016-07-26 06:54] LABS: AUTOMATED NEUTROPHIL # 4.8 TH/MM3 (1.8-7.7); BASOPHIL % 0.1 % (0.0-2.0); HEMATOCRIT 33.3 % (35.0-46.0); HEMO FLAGS DIFF FINAL; LYMPHOCYTE # 0.5 TH/MM3 (1.0-4.8); MEAN CELL VOLUME 87.4 FL (80.0-100.0); MEAN CORPUSCULAR HEMOGLOBIN 28.1 PG (27.0-34.0); MEAN CORPUSCULAR HGB CONC 32.1 % (32.0-36.0); MONO % 10.5 % (0.0-8.0); NEUT % 80.4 % (16.0-70.0); PLATELET COUNT 440 TH/MM3 (150-450); RED BLOOD COUNT 3.81 MIL/MM3 (4.00-5.30); RED CELL DISTRIBUTION WIDTH 19.9 % (11.6-17.2)
--- NOTE | 2016-07-26 07:08 | RADRPT ---
EXAM DATE/TIME: 07/26/2016 06:35 [place] COMPARISON: CHEST SINGLE AP, July 24, 2016, 6:57. INDICATIONS : Coughing, short of breath MEDICAL HISTORY : right upper lobe mass SURGICAL HISTORY : infusaport ENCOUNTER: Subsequent ACUITY: 4 - 6 days PAIN SCORE: 0/10 LOCATION: Right chest FINDINGS: Left subclavian line is present with tip overlapping the expected region of the SVC. Large right uppe r lobe mass has not changed. The rest of the examination has not significantly changed. CONCLUSION: No appreciable change. Jigar Belcher MD on July 26, 2016 at 7:05 Board Certified Radiologist. This report was verified electronically.
[2016-07-26 07:33] LABS: ALKALINE PHOSPHATASE 97 U/L (45-117); ALT (GPT) 22 U/L (10-53); ANION GAP 6 MEQ/L (5-15); AST (GOT) 17 U/L (15-37); BICARBONATE 26.8 MEQ/L (21.0-32.0); BLOOD UREA NITROGEN 10 MG/DL (7-18); CHLORIDE 108 MEQ/L (98-107); GLOMERULAR FILTRATION RATE 172 ML/MIN (>89); MAGNESIUM 2.1 MG/DL (1.5-2.5); POTASSIUM 3.8 MEQ/L (3.5-5.1); SODIUM (NA) 141 MEQ/L (136-145); TOTAL BILIRUBIN ADULT 0.1 MG/DL (0.2-1.0)
[2016-07-26 08:00] VITALS: BP 116/59; PULSE 82; RESP 15; TEMP 96.9; O2SAT 98
[2016-07-26] MEDS: MEGESTROL ACETATE SUSP 400 MG/10 ML CUP PO SCH (09:12)
[2016-07-26] MEDS: DEXAMETHASONE 4 MG TAB PO SCH (09:12)
[2016-07-26] MEDS: SODIUM CHLORIDE 0.9% FLUSH 10 ML FLUSH IV FLUSH SCH (09:16)
--- NOTE | 2016-07-26 11:28 | HHI.DCPOC ---
Discharge Care Plan Diagnosis: (1) Lung cancer (2) Generalized weakness (3) Physical deconditioning Goals to Promote Your Health * To prevent worsening of your condition and complications * To maintain your health at the optimal level Directions to Meet Your Goals Take your medications as prescribed Follow your dietary instruction Follow activity as directed Keep your appointments as scheduled Take your immunizations and boosters as scheduled If your symptoms worsen call your PCP, if no PCP go to Urgent Care Center or Emergency Room Smoking is Dangerous to Your Health. Avoid second hand smoke Call the 24-hour hour crisis hotline for domestic abuse at The exam, history, and the medical decision-making described in the above note were completed with the assistance of the mid-level provider. I reviewed and agree with the findings presented. I attest that I had a [id number] encounter with the patient on the same day, and personally performed and documented my assessment and findings in the medical record. Charis Storey July 26, 2016 11:28 Ha Rebolledo MD July 26, 2016 23:22
--- NOTE | 2016-07-26 11:29 | HHI.FF ---
Face to Face Verification Diagnosis: (1) Lung cancer (2) Generalized weakness (3) Malnutrition (4) Physical deconditioning Physical Therapy Order: Evaluate and Treat, Improve ambulation, Strength and gait training Home Health Nursing Order: Nursing assessment with vital signs I have seen patient Tyra Olivarez on 07/26/16. My clinical findings support the need for the requested home health care services because: Ltd mobility - disease progression Limited ability to care for self High risk of falls I certify that my clinical findings support that this patient is homebound because: Unsteady gait/balance Charis Storey July 26, 2016 11:29
--- NOTE | 2016-07-26 12:30 | PD.ONC.PN ---
Subjective Subjective Remarks Afebrile overnight. "I feel good." " i want to go home." She states she walked all the way around the floor with PT today. Objective Data Date Time Temp Pulse Resp B/P Pulse Ox O2 Delivery O2 Flow Rate FiO2 07/26/16 08:00 96.9 82 15 116/59 98 07/26/16 04:00 96.8 83 16 99/51 97 07/25/16 20:00 96.7 84 18 110/50 98 07/25/16 16:00 96.6 76 18 100/57 98 07/26/16 07/26/16 07/26/16 07:00 15:00 23:00 Intake Total 480 ml 480 ml Output Total 1800 ml Balance 480 ml -1320 ml Result Diagram: 07/26/1652907/26/16529 Laboratory Results Laboratory Tests Test 07/26/16 05:30 White Blood Count 6.0 TH/MM3 Red Blood Count 3.81 MIL/MM3 Hemoglobin 10.7 GM/DL Hematocrit 33.3 % Mean Corpuscular Volume 87.4 FL Mean Corpuscular Hemoglobin 28.1 PG Mean Corpuscular Hemoglobin 32.1 % Concent Red Cell Distribution Width 19.9 % Platelet Count 440 TH/MM3 Mean Platelet Volume 7.7 FL Neutrophils (%) (Auto) 80.4 % Lymphocytes (%) (Auto) 9.0 % Monocytes (%) (Auto) 10.5 % Eosinophils (%) (Auto) 0.0 % Basophils (%) (Auto) 0.1 % Neutrophils # (Auto) 4.8 TH/MM3 Lymphocytes # (Auto) 0.5 TH/MM3 Monocytes # (Auto) 0.6 TH/MM3 Eosinophils # (Auto) 0.0 TH/MM3 Basophils # (Auto) 0.0 TH/MM3 CBC Comment DIFF FINAL Differential Comment Sodium Level 141 MEQ/L Potassium Level 3.8 MEQ/L Chloride Level 108 MEQ/L Carbon Dioxide Level 26.8 MEQ/L Anion Gap 6 MEQ/L Blood Urea Nitrogen 10 MG/DL Creatinine 0.37 MG/DL Estimat Glomerular Filtration 172 ML/MIN Rate Random Glucose 192 MG/DL Calcium Level 8.5 MG/DL Phosphorus Level 1.6 MG/DL Magnesium Level 2.1 MG/DL Total Bilirubin 0.1 MG/DL Aspartate Amino Transf 17 U/L (AST/SGOT) Alanine Aminotransferase 22 U/L (ALT/SGPT) Alkaline Phosphatase 97 U/L Total Protein 5.5 GM/DL Albumin 1.8 GM/DL Culture Results Microbiology Date/Time Procedure Status Source Growth 07/25/16 16:16 Aerobic Blood Culture - Preliminary Resulted Blood Line NO GROWTH IN 1 DAY 07/25/16 16:16 Anaerobic Blood Culture - Preliminary Resulted Blood Line NO GROWTH IN 1 DAY 07/25/16 19:44 Aerobic Blood Culture - Preliminary Resulted Blood Line NO GROWTH IN 1 DAY 07/25/16 19:44 Anaerobic Blood Culture - Preliminary Resulted Blood Line NO GROWTH IN 1 DAY Imaging Studies Last 24 hours Impressions Chest X-Ray 07/26/16 0600 Signed Impressions: Service Date/Time: Tuesday, July 26, 2016 06:35 - CONCLUSION: No appreciable change. Jigar Belcher MD Administered Medications Medications (Trade) Dose Ordered Sig/Khanh Route PRN Reason Start Time Stop Time Status Last Admin Dose Admin Acetaminophen (Tylenol) 650 mg Q4H PRN PO Temp>101F, Headache 07/23/16 18:30 07/23/16 21:12 Sodium Chloride (NS Flush) 2 ml BID IV FLUSH 07/23/16 21:00 07/25/16 20:59 Megestrol Acetate (Megace Liq) 400 mg DAILY PO 07/24/16 09:00 07/26/16 09:12 Enoxaparin Sodium 30 mg 30 mg Q24H SQ 07/24/16 00:00 07/26/16 00:18 Sodium Chloride (NS 1000 ml Inj) 1,000 ml @ 42 mls/hr [id number] IV 07/24/16 00:00 07/25/16 00:38 Mirtazapine (Remeron) 15 mg HS PO 07/24/16 21:00 07/25/16 20:56 Dexamethasone (Decadron) 4 mg Q12HR PO 07/24/16 09:00 07/26/16 09:12 Sodium Chloride 5 ml 5 ml UNSCH PRN IV FLUSH NEEDED 07/24/16 03:30 07/24/16 04:43 Ceftriaxone Sodium 1000 mg/ Sodium Chloride 100 ml @ 200 mls/hr Q24H IV 07/25/16 00:00 07/26/16 00:19 Azithromycin/ Sodium Chloride (Zithromax Inj/ NS 250 ml Inj) 250 ml @ 250 mls/hr Q24H IV 07/25/16 00:00 07/26/16 00:18 Pantoprazole Sodium (Protonix Inj) 40 mg Q24H IV PUSH 07/25/16 17:00 07/25/16 17:33 Objective Remarks GENERAL: Elderly female, sitting upright in room in [place]. SKIN: Warm and dry. HEAD: Normocephalic. EYES: No scleral icterus. No injection or drainage. NECK: Supple, trachea midline. CARDIOVASCULAR: Regular rate and rhythm RESPIRATORY: Breath sounds equal bilaterally. No accessory muscle use. GASTROINTESTINAL: Abdomen soft, non-tender, nondistended. EXTREMITIES: No cyanosis NEUROLOGICAL: No obvious focal deficit. Awake, alert, and oriented x3. Assessment/Plan Problem List: (1) Lung cancer Status: Acute Plan: -- NSCLC diagnosed in December 2015. -- She has been getting concurrent chemo and XRT outpatient. -- Last chemotherapy with carboplatin was 07/09. -- Lately has had worsening performance status. Decreased appetite. -- Admitted for hypotension while she was getting blood transfusion. (2) Generalized weakness Status: Acute Plan: --Hypotension, lethargy and right upper lobe consolidated pneumonia. --on IV abx + IVF --bc no growth (3) Malnutrition Status: Acute Plan: --Dietary consult. --Ensure Plus t.i.d. with meals. --Remeron and Megace. (4) Severe anemia Status: Acute Plan: --was given 2 units of packed red blood cells. --will transfuse accordingly if the patient becomes symptomatic or hemoglobin drops below 7.5. (5) Physical deconditioning Status: Acute Plan: --PT following--recommend rehab versus home with [facility] Assessment 71 y/o female with lung cancer admitted for hypotension and dehydration as well as dyspnea and severe anemia --presented with progressive weight loss, loss of appetite and cough in December of 2015. was found to have a right upper lobe mass which was quite big at 10.8 x 8.4 cm. +hilar adenopathy. --underwent biopsy which confirmed necrotic [id number] lung cancer. was thought to be Stage III disease and the patient was started on concurrent chemotherapy and radiation treatments. --performance status declined and her treatments were halted. --has resumed treatment with carboplatin and Alimta and has now restarted her radiation treatments. --now presents with progressive weakness, lethargy, hypotension. --found to be severely anemic. has poor oral intake and she has lost weight. --hypotensive in the clinic and was given 2 units of packed red blood cells. --chest x-ray. concern for consolidated pneumonia in the right upper lobe. ( on IV abx) Plan 1. discharge home today 2. patient advised to call and make appointment within [address] Rebolledo. 3. home with Zithromax 4. K-phos 4 tabs prior to discharge for low phosphorus . Attending Statement The exam, history, and the medical decision-making described in the above note were completed with the assistance of the mid-level provider. I reviewed and agree with the findings presented. I attest that I had a [id number] encounter with the patient on the same day, and personally performed and documented my assessment and findings in the medical record. Charis Storey July 26, 2016 12:30 Ha Rebolledo MD July 26, 2016 23:21
[2016-07-26] MEDS ORDERED: ZITH500T PO (12:32)
--- NOTE | 2016-07-26 12:39 | HHI.DS ---
Charis Storey 07/26/16 1239: Discharge Summary Admission Date July 23, 2016 at 16:23 Admitting Diagnosis severe anemia. Hyponatremia. Hypokalemia. Brief History 71y/o female with Stage IV lung cancer admitted with lethargy, dyspnea, hypotension and severe anemia. CBC/BMP: 07/26/16 0530 07/26/16 0530 Significant Findings Laboratory Tests Test 07/24/16 07/25/16 07/26/16 04:40 05:30 05:30 White Blood Count 3.2 TH/MM3 2.6 TH/MM3 (4.0-11.0) (4.0-11.0) Red Blood Count 3.65 MIL/MM3 3.79 MIL/MM3 3.81 MIL/MM3 (4.00-5.30) (4.00-5.30) (4.00-5.30) Hemoglobin 10.5 GM/DL 10.7 GM/DL 10.7 GM/DL (11.6-15.3) (11.6-15.3) (11.6-15.3) Hematocrit 31.0 % 32.5 % 33.3 % (35.0-46.0) (35.0-46.0) (35.0-46.0) Red Cell Distribution Width 18.8 % 19.4 % 19.9 % (11.6-17.2) (11.6-17.2) (11.6-17.2) Monocytes (%) (Auto) 23.9 % 10.5 % (0.0-8.0) (0.0-8.0) Lymphocytes # (Auto) 0.6 TH/MM3 0.3 TH/MM3 0.5 TH/MM3 (1.0-4.8) (1.0-4.8) (1.0-4.8) Sodium Level 134 MEQ/L (136-145) Potassium Level 2.9 MEQ/L (3.5-5.1) Chloride Level 97 MEQ/L 108 MEQ/L (98-107) (98-107) Creatinine 0.34 MG/DL 0.30 MG/DL 0.37 MG/DL (0.50-1.00) (0.50-1.00) (0.50-1.00) Calcium Level 8.1 MG/DL (8.5-10.1) Aspartate Amino Transf 14 U/L (15-37) (AST/SGOT) Total Protein 5.6 GM/DL 5.5 GM/DL (6.4-8.2) (6.4-8.2) Albumin 1.8 GM/DL 1.8 GM/DL (3.4-5.0) (3.4-5.0) Neutrophils (%) (Auto) 81.4 % 80.4 % (16.0-70.0) (16.0-70.0) Random Glucose 168 MG/DL 192 MG/DL (74-106) (74-106) Phosphorus Level 2.1 MG/DL 1.6 MG/DL (2.5-4.9) (2.5-4.9) Total Bilirubin 0.1 MG/DL (0.2-1.0) Imaging Last Impressions Chest X-Ray 07/26/16 0600 Signed Impressions: Service Date/Time: Tuesday, July 26, 2016 06:35 - CONCLUSION: No appreciable change. Jigar Belcher MD PE at Discharge please see physical exam from progress note dated 07/26/16 Hospital Course Ms. Olivarez was admitted on 07/23/16 for lethargy, dyspnea, and hypotension, as well as severe anemia. She was transfused 2 units pRBC and given fluid boluses. Her hemoglobin and blood pressure improved. Chest x-ray showed consolidation in right upper lobe. patient was started on Zithromax and Rocephin. Blood cultures were drawn and showed no growth. She is being discharged in stable condition with instructions to follow up next week. Pt Condition on Discharge: Good Discharge Disposition: Disch w/ Home Health Serv Discharge Instructions DIET: Follow Instructions for: As Tolerated, No Restrictions Activities you can perform: Regular-No Restrictions Ha Rebolledo MD 07/26/16 2321: Discharge Summary CBC/BMP: 07/26/16 0530 07/26/16 0530 Discharge Instructions Additional Information The exam, history, and the medical decision-making described in the above note were completed with the assistance of the mid-level provider. I reviewed and agree with the findings presented. I attest that I had a [id number] encounter with the patient on the same day, and personally performed and documented my assessment and findings in the medical record. MD Raleigh Lam Hilary Elizabeth PA July 26, 2016 12:39 Ha Rebolledo MD July 26, 2016 23:21 Activities you can perform: Regular-No Restrictions Charis Storey July 26, 2016 12:39
[2016-07-26] MEDS ORDERED: K-PHTAB PO (12:45)
[2016-07-26] MEDS ORDERED: POTASSIUM PHOSPHATE MONOBASIC 500 MG TAB PO ONE ×2 (12:45)
[2016-07-26] MEDS ORDERED: MEGE40SU PO (13:11)
== END 2016-07-26 14:16 | disposition home health service (06) | DRG 194 ==
LOC: NEPC 15:45 → NEDA 16:23 → HOCA 19:29
PROVIDERS: ADMIT Internal Medicine; ATTEND Internal Medicine
PROC: 30233N1 Transfusion of Nonautologous Red Blood Cells into Peripheral Vein, Percutaneous Approach (ICD-10-PCS; principal; 2016-07-23)
DX: J18.9 Pneumonia, unspecified organism (principal); E46 Unspecified protein-calorie malnutrition; R64 Cachexia; C34.11 Malignant neoplasm of upper lobe, right bronchus or lung; E86.0 Dehydration; D64.9 Anemia, unspecified; E87.1 Hypo-osmolality and hyponatremia; Z68.1 Body mass index [BMI] 19.9 or less, adult; E87.6 Hypokalemia; G89.3 Neoplasm related pain (acute) (chronic)
CPT/HCPCS: 36430; 36591; 71010; 80048; 80053; 83735; 84100; 84145; 85025; 86850; 86900; 86901; 86920; 87040; 99215; 99285; C9113; G0463; J0456; J0696; J1642; J1650; J3475; J3480; J7030; J7050; J8540; P9016

== ENCOUNTER 2016-09-28 09:24 | Inpatient (IN) | payer OTHER, MEDICARE ==
[2016-09-28] VITALS (13 sets, daily range): BP systolic 91–105; BP diastolic 46–64; PULSE 94–117; RESP 16–18; TEMP 98.2–101.4; O2SAT 92–100
[~2016-09-28] VITALS: Ht 175.3 cm; Wt 49.7 kg
[~2016-09-28 09:24] MED LIST changes: +K-PHTAB PO; +MEGE40SU PO; -TRAM50TA PO; +ZITH500T PO
[2016-09-28] MEDS ORDERED: MIRTA15 PO (09:52)
[2016-09-28] MEDS ORDERED: SODIUM CHLOR 0.9% 1000 ML INJ 1,000 ML IV ONE (10:00)
--- NOTE | 2016-09-28 10:21 | RADRPT ---
EXAM DATE/TIME: 09/28/2016 10:06 [facility] COMPARISON: CHEST SINGLE AP, July 26, 2016, 6:35. INDICATIONS : Short of breath, weakness, right lung CA MEDICAL HISTORY : Carcinoma, lung. SURGICAL HISTORY : infusaport ENCOUNTER: Initial ACUITY: 4 - 6 days PAIN SCORE: 0/10 LOCATION: Bilateral chest FINDINGS: The right upper lobe mass has enlarged measuring 15.2 cm, it measured 12.3 cm previously. The rest of the examination has not significantly changed. CONCLUSION: Enlargement of the previously seen right upper lobe mass. Jigar Belcher MD on September 28, 2016 at 10:15 Board Certified Radiologist. This report was verified electronically.
[2016-09-28 10:36] LABS: AUTOMATED NEUTROPHIL # 13.1 TH/MM3 (1.8-7.7); BASOPHIL # 0.3 TH/MM3 (0-0.2); BASOPHIL % 2.1 % (0.0-2.0); EOSINOPHIL % 0.2 % (0.0-4.0); HEMATOCRIT 23.4 % (35.0-46.0); LYMPH % 6.3 % (9.0-44.0); MEAN CELL VOLUME 93.1 FL (80.0-100.0); MEAN CORPUSCULAR HEMOGLOBIN 30.9 PG (27.0-34.0); MEAN CORPUSCULAR HGB CONC 33.2 % (32.0-36.0); NEUT % 81.4 % (16.0-70.0); PLATELET COUNT 439 TH/MM3 (150-450); RED BLOOD COUNT 2.51 MIL/MM3 (4.00-5.30); RED CELL DISTRIBUTION WIDTH 21.9 % (11.6-17.2)
[2016-09-28 10:37] LABS: HEMO FLAGS AUTO DIFF
--- NOTE | 2016-09-28 10:38 | PD ---
HPI Chief Complaint: General Weakness Time Seen by Provider: 09:40 Travel History International Travel<30 days: No Contact w/Intl Traveler<30days: No Traveled to known affect area: No History of Present Illness HPI Patient is a 71-year-old female with history of non-small cell carcinoma of the lung, currently receiving chemotherapy, who comes in complaining of generalized weakness. Per son she has been getting weaker over the past few months, and has worsened in the past 2 weeks. She says the past week has been a lot worse. She reports being unable to get out of the chair to use the bedside commode. Her son reports he is not sure she is eating anything because he does not think that she can get to the refrigerator to get any food. She denies any pain anywhere. She has noticed increased swelling and redness of her legs. She denies chest pain or shortness of breath. PFSH Past Medical History Cancer: Yes (lung) Cardiovascular Problems: No Chemotherapy: Yes (every 3 weeks, starts back in october) COPD: Yes Diabetes: No Diminished Hearing: No Endocrine: No Gastrointestinal Disorders: Yes Genitourinary: No Hepatitis: No Hiatal Hernia: No Hypertension: No Immune Disorder: No Musculoskeletal: Yes (HX MULTIPLE INJURIES) Neurologic: No Psychiatric: No Reproductive: No Respiratory: Yes (lung ca) Immunizations Current: Yes Thyroid Disease: No Tetanus Vaccination: Unknown Past Surgical History Abdominal Surgery: Yes (APPENDECTOMY) AICD: No Gynecologic Surgery: Yes (HYSTERECTOMY) Hysterectomy: Yes Joint Replacement: No Oral Surgery: Yes (TONSILECTOMY) Pacemaker: No Thoracic Surgery: Yes (breast implants) Other Surgery: Yes Social History Alcohol Use: No Tobacco Use: Yes Substance Use: No Allergies-Medications (Allergen,Severity, Reaction): Coded Allergies: No Known Allergies (Unverified , 09/28/16) Reported Meds & Prescriptions Reported Meds & Active Scripts Active Reported Mirtazapine 15 Mg Tab 15 Mg PO HS Zofran (Ondansetron HCl) 8 Mg Tab 8 Mg PO TID Review of Systems Except as stated in HPI: all other systems reviewed are Neg General / Constitutional: No: Fever, Chills Eyes: No: Blurred Vision HENT: No: Headaches, Lightheadedness Cardiovascular: No: Chest Pain or Discomfort Respiratory: No: Cough, Shortness of Breath Gastrointestinal: No: Nausea, Vomiting, Abdominal Pain Genitourinary: No: Dysuria Musculoskeletal: Positive: Edema Skin: Positive Change in Pigmentation Neurologic: Positive: Weakness, No: Dizziness Physical Exam Narrative GENERAL: Awake and alert, cachectic appearing, in no acute distress. SKIN: Focused skin assessment warm/dry. Skin is pale. HEAD: Atraumatic. Normocephalic. EYES: Pupils equal and round. No scleral icterus. ENT: Dry lips. NECK: Trachea midline. No JVD. CARDIOVASCULAR: Regular rate and rhythm. No murmur appreciated. RESPIRATORY: No accessory muscle use. Clear to auscultation. Breath sounds equal bilaterally. GASTROINTESTINAL: Abdomen soft, non-tender, nondistended. MUSCULOSKELETAL: No obvious deformities. No clubbing. No cyanosis. 2+ pitting edema bilateral lower extremities. Erythema and warmth to both shins with peeling of the skin. NEUROLOGICAL: Awake and alert. No obvious cranial nerve deficits. Motor grossly within normal limits. Normal speech. PSYCHIATRIC: Appropriate mood and affect; insight and judgment normal. Data Data Last Documented VS Vital Signs Date Time Temp Pulse Resp B/P Pulse Ox O2 Delivery O2 Flow Rate FiO2 09/28/16 11:21 98.2 100 16 98/64 100 Nasal Cannula 3 Orders Complete Blood Count With Diff (09/28/16 09:49) Comprehensive Metabolic Panel (09/28/16 09:49) Act Partial Throm Time (Ptt) (09/28/16 09:49) Prothrombin Time / Inr (Pt) (09/28/16 09:49) Troponin I (09/28/16 09:49) Iv Access Insert/Monitor (09/28/16 09:49) Ecg Monitoring (09/28/16 09:49) Oximetry (09/28/16 09:49) Oxygen Administration (09/28/16 09:49) Chest, Single Ap (09/28/16 09:49) Ct Pulmonary Angiogram (09/28/16 09:49) Sodium Chloride 0.9% Flush (Ns Flush) (09/28/16 10:00) Type And Screen (09/28/16 09:49) Urinalysis - C+S If Indicated (09/28/16 09:49) Sodium Chlor 0.9% 1000 Ml Inj (Ns 1000 M (09/28/16 10:00) Vascular Access Team Consult/P PRN (09/28/16 10:42) Vascular Poc Ultrasound (09/28/16 ) Iohexol 350 Inj (Omnipaque 350 Inj) (09/28/16 11:53) Clindamycin Inj (Cleocin Inj) (09/28/16 12:15) Admit Order (Ed Use Only) (09/28/16 ) Labs Laboratory Tests Test 09/28/16 09/28/16 10:32 12:05 White Blood Count 16.0 TH/MM3 Red Blood Count 2.51 MIL/MM3 Hemoglobin 7.8 GM/DL Hematocrit 23.4 % Mean Corpuscular Volume 93.1 FL Mean Corpuscular Hemoglobin 30.9 PG Mean Corpuscular Hemoglobin 33.2 % Concent Red Cell Distribution Width 21.9 % Platelet Count 439 TH/MM3 Mean Platelet Volume 6.7 FL Neutrophils (%) (Auto) 81.4 % Lymphocytes (%) (Auto) 6.3 % Monocytes (%) (Auto) 10.0 % Eosinophils (%) (Auto) 0.2 % Basophils (%) (Auto) 2.1 % Neutrophils # (Auto) 13.1 TH/MM3 Lymphocytes # (Auto) 1.0 TH/MM3 Monocytes # (Auto) 1.6 TH/MM3 Eosinophils # (Auto) 0.0 TH/MM3 Basophils # (Auto) 0.3 TH/MM3 CBC Comment AUTO DIFF Differential Comment AUTO DIFF CONFIRMED Prothrombin Time 13.7 SEC Prothromb Time International 1.2 RATIO Ratio Activated Partial 28.1 SEC Thromboplast Time Sodium Level 131 MEQ/L Potassium Level 3.4 MEQ/L Chloride Level 94 MEQ/L Carbon Dioxide Level 28.0 MEQ/L Anion Gap 9 MEQ/L Blood Urea Nitrogen 7 MG/DL Creatinine 0.45 MG/DL Estimat Glomerular Filtration 137 ML/MIN Rate Random Glucose 105 MG/DL Calcium Level 8.9 MG/DL Total Bilirubin 0.5 MG/DL Aspartate Amino Transf 8 U/L (AST/SGOT) Alanine Aminotransferase 8 U/L (ALT/SGPT) Alkaline Phosphatase 100 U/L Troponin I LESS THAN 0.02 NG/ML Total Protein 7.0 GM/DL Albumin 2.1 GM/DL Blood Type O POSITIVE Antibody Screen NEGATIVE Urine Collection Type CLEAN CATCH Urine Color YELLOW Urine Turbidity CLEAR Urine pH 7.0 Urine Specific [place] 1.022 Urine Protein NEG mg/dL Urine Glucose (UA) NEG mg/dL Urine Ketones NEG mg/dL Urine Occult Blood TRACE Urine Nitrite NEG Urine Bilirubin NEG Urine Leukocyte Esterase SMALL Urine RBC 0-3 /hpf Urine WBC 3-5 /hpf Urine Squamous Epithelial 0-5 /hpf Cells Urine Amorphous Sediment MOD Microscopic Urinalysis Comment CULT NOT INDICATED Urine Collection Time 1205 MDM Medical Decision Making Medical Screen Exam Complete: Yes Emergency Medical Condition: Yes Medical Record Reviewed: Yes Differential Diagnosis Electrolyte abnormality versus dehydration versus infection versus UTI versus cellulitis versus PE versus pneumonia Narrative Course Patient is a 71-year-old female comes in complaining of generalized weakness. Exam shows edema of both lower extremities with some erythema. Patient is 88% oxygen saturation in the room on room air. She is tachycardic in the room. IV established, labs sent. Patient placed on 2 L of oxygen. Labs show a Hgb of 7.8, WBC of 16. CTA of the chest, shows large mass, no evidence of PE. Patient given IVF. Given Clindamycin for likely cellulitis of the legs. Will be admitted for further management. Diagnosis Primary Impression: Generalized weakness Additional Impressions: Dehydration Cellulitis Qualified Code: L03.119 - Cellulitis of lower extremity, unspecified laterality Admitting Information Admitting Physician Requests: Admit Condition: Stable Florence Bonilla MD Sep 28, 2016 10:38
[2016-09-28 10:46] LABS: CHLORIDE 94 MEQ/L (98-107); POTASSIUM 3.4 MEQ/L (3.5-5.1); SODIUM (NA) 131 MEQ/L (136-145)
[2016-09-28 10:50] LABS: ANION GAP 9 MEQ/L (5-15); BLOOD UREA NITROGEN 7 MG/DL (7-18)
[2016-09-28 10:51] LABS: APTT (PATIENT) 28.1 SEC (24.3-30.1); INTERNATIONAL NORMALIZED RATIO 1.2 RATIO; PROTHROMBIN TIME - PATIENT 13.7 SEC (9.8-11.6)
[2016-09-28 10:53] LABS: ALT (GPT) 8 U/L (10-53); AST (GOT) 8 U/L (15-37); GLOMERULAR FILTRATION RATE 137 ML/MIN (>89)
[2016-09-28 10:55] LABS: TOTAL BILIRUBIN ADULT 0.5 MG/DL (0.2-1.0)
[2016-09-28 10:56] LABS: ALKALINE PHOSPHATASE 100 U/L (45-117)
[2016-09-28 10:58] LABS: SCAN/DIFF AUTO DIFF CONFIRMED
[2016-09-28] MEDS ORDERED: IOHEXOL 350 MG/ML 10 ML VIAL (for RAD DIAG) IV ONE ×2 (11:53→13:08)
--- NOTE | 2016-09-28 11:57 | RADRPT ---
EXAM DATE/TIME: 09/28/2016 11:26 [facility] COMPARISON: CHEST SINGLE AP, September 28, 2016, 10:06. INDICATIONS : Embolism. IV CONTRAST: 75 cc Omnipaque 350 (iohexol) IV RADIATION DOSE: 6.04 CTDIvol (mGy) MEDICAL HISTORY : Carcinoma, lung. On chemo SURGICAL HISTORY : breast implants ENCOUNTER: Initial ACUITY: 3 days PAIN SCALE: 0/10 LOCATION: chest TECHNIQUE: Volumetric scanning of the chest was performed using a pulmonary embolism protocol MIP images were re constructed. Using automated exposure control and adjustment of the mA and/or kV according to patien t size, radiation dose was kept as low as reasonably achievable to obtain optimal diagnostic quality images. DICOM format image data is available electronically for review and comparison. Follow-up recommendations for incidentally detected pulmonary nodules are based at a minimum on nodul e size and patient risk factors according to Fleischner Society Guidelines. FINDINGS: There is a huge mass right upper lobe almost certainly malignant measures 12.2 cm in AP diameter . It extends to the right hilum and causes mass effect on the right upper lobe bronchus without any d efinite adenopathy within the mediastinum. There is no evidence for PE for technique. CONCLUSION: Huge malignant appearing right upper lobe mass. Jigar Belcher MD on September 28, 2016 at 11:54 Board Certified Radiologist. This report was verified electronically.
[2016-09-28 12:12] LABS: BLOOD, URINE TRACE (NEG); GLUCOSE,URINE NEG (NEG); KETONE, URINE NEG (NEG); NITRITE,URINE NEG (NEG)
[2016-09-28] MEDS ORDERED: CLINDAMYCIN INJ 600 MG in SODIUM CHLORIDE 0.9% INJ 100 ML IV ONE (12:15)
[2016-09-28 12:17] LABS: METHOD OF COLLECTION CLEAN CATCH
[2016-09-28 12:18] LABS: URINE COLOR YELLOW (YELLW/STRAW)
[2016-09-28 12:20] LABS: COMMENT (UR) CULT NOT INDICATED; COMMENT2 (UR) MUCOUS PRESENT; CULTURE IF INDICATED CULT NOT INDICATED; RBC, URINE 0-3 /hpf (0-3); SQUAMOUS EPITHELIAL CELL URINE 0-5 /hpf (0-5)
[2016-09-28] MEDS ORDERED: ONDANSETRON HCL 4 MG/2 ML VIAL IV PUSH PRN (12:45)
[2016-09-28] MEDS ORDERED: RESP: ALBUTEROL 1.25 MG/3 ML NEB (PRN) NEB (12:45)
[2016-09-28] MEDS ORDERED: SODIUM CHLORID 0.9% 500 ML INJ 500 ML IV ONE (12:45)
[2016-09-28] MEDS ORDERED: POTASSIUM CHLORIDE 20 MEQ CONTROLLED RELEASE TAB PO ONE (12:45)
--- NOTE | 2016-09-28 13:03 | HHI.HP ---
[facility] Service [facility] Primary Care Physician Non-Staff Admission Diagnosis dehydration, anemia, cellulitis Diagnoses: (1) Cellulitis Diagnosis: Principal (2) Generalized weakness Diagnosis: Principal Chief Complaint: generalized weakness Travel History International Travel<30 Days: No Contact w/Intl Traveler <30 Da: No Traveled to Known Affected Are: No History of Present Illness patient is a 71 y/o female with history of lung cancer, was on chemo till about three weeks ago, presented to ER with generalized weakness. the son, at the bedside, says that she started to feel weak about two months ago and this has been progressively getting worse. he says that she feels so weak that she can hardly get out of the bed. she lives alone but being helped by her son. he's concerned that with this worsening weakness his mother won't be able to take care of herself. she denies any respiratory distress, cough, fever, chills, orthopnea. but she says that she noticed that her legs started to get swollen about a month ago. she noticed some redness of the legs as well. as mentioned before she doesn't report any fever at home. Review of Systems Constitutional: COMPLAINS OF: Fatigue, DENIES: Fever, Weight loss, Chills, Night Sweats Eyes: DENIES: Blurred vision, Diplopia, Vision loss, Double Vision Ears, nose, mouth, throat: DENIES: Tinnitus, Vertigo, Throat pain, Epistaxis Respiratory: DENIES: Apneas, Cough, Snoring, Wheezing, Hemoptysis, Sputum production, Shortness of breath Cardiovascular: COMPLAINS OF: Lower Extremity Edema, DENIES: Chest pain, Palpitations, Syncope, Dyspnea on Exertion, PND, Orthopnea, Claudication Gastrointestinal: DENIES: Abdominal pain, Black stools, Bloody stools, Constipation, Diarrhea, Nausea, Vomiting, Difficulty Swallowing, Anorexia Genitourinary: DENIES: Urinary frequency, Urgency, Hematuria, Dysuria Musculoskeletal: DENIES: Joint pain, Muscle aches, Stiffness, Joint Swelling Integumentary: DENIES: Rash Neurologic: DENIES: Abnormal gait, Headache, Localized weakness, Paresthesias, Seizures, Speech Problems, Tremor, Poor Balance Psychiatric: DENIES: Anxiety, Confusion, Mood changes, Depression, Hallucinations, Agitation, Suicidal Ideation, Homicidal Ideation, Delusions Past Family Social History Past Medical History lung cancer Past Surgical History appendectomy hysterectomy Reported Medications zofran Mirtazapine Allergies: Coded Allergies: No Known Allergies (Unverified , 09/28/16) Active Ordered Medications Current Medications Sodium Chloride 2 ml 2 ml UNSCH PRN IVF FLUSH AFTER USING IV ACCESS; Start at 10:00 Sodium Chloride (NS 1000 ml Inj) 1,000 ml @ 999 mls/hr BOLUS ONCE IV Last administered on 09/28/16 10:48; Start 09/28/16 at 10:00; Stop 09/28/16 at 11:00 ; Status DC Iohexol 75 ml 75 ml STK-MED ONCE IV Last administered on 09/28/16 11:53; Start 09/28/16 at 11:53; Stop 09/28/16 at 11:54; Status DC Clindamycin Phosphate/Sodium Chloride (Cleocin Inj/NS Inj) 104 ml @ 208 mls/hr ONCE ONCE IV Last administered on 09/28/16 12:46; Start 09/28/16 at 12:15; Stop 09/28/16 at 12:44; Status DC Family History can in her father. Social History still smokes 15 cigarettes a day. doesn't drink. lives alone. Physical Exam Vital Signs Vital Signs Date Time Temp Pulse Resp B/P Pulse Ox O2 Delivery O2 Flow Rate FiO2 09/28/16 11:21 98.2 100 16 98/64 100 Nasal Cannula 3 09/28/16 11:03 102 16 91/46 100 Nasal Cannula 3 09/28/16 11:03 16 100 Nasal Cannula 3 09/28/16 10:14 112 16 96/52 96 Nasal Cannula 3 09/28/16 10:14 Nasal Cannula 3 09/28/16 10:07 96 Nasal Cannula 3 09/28/16 10:07 96 Nasal Cannula 3 09/28/16 09:36 120 16 99 Nasal Cannula 3 09/28/16 09:29 98.6 94 16 95/60 99 Physical Exam GENERAL: elderly female, in no apparent distress. SKIN: No rashes, ecchymoses or lesions. Cool and dry. HEAD: Atraumatic. Normocephalic. No temporal or scalp tenderness. EYES: Pupils equal round and reactive. Extraocular motions intact. No scleral icterus. No injection or drainage. ENT: Nose without bleeding, purulent drainage or septal hematoma. Throat without erythema, tonsillar hypertrophy or exudate. Uvula midline. Airway patent. NECK: Trachea midline. No JVD or lymphadenopathy. Supple, nontender, no meningeal signs. CARDIOVASCULAR: Regular rate and rhythm without murmurs, gallops, or rubs. RESPIRATORY: diminished air entry right lung field. GASTROINTESTINAL: Abdomen soft, non-tender, nondistended. No hepato-splenomegaly , or palpable masses. No guarding. MUSCULOSKELETAL: Extremities without clubbing, cyanosis, or edema. No joint tenderness, effusion, or edema noted. No calf tenderness. Negative Homans sign bilaterally. NEUROLOGICAL: Awake and alert. Cranial nerves II through XII intact. Motor and sensory grossly within normal limits. Five out of 5 muscle strength in all muscle groups. Normal speech. Laboratory Laboratory Tests Test 09/28/16 09/28/16 10:32 12:05 White Blood Count 16.0 Red Blood Count 2.51 Hemoglobin 7.8 Hematocrit 23.4 Mean Corpuscular Volume 93.1 Mean Corpuscular Hemoglobin 30.9 Mean Corpuscular Hemoglobin 33.2 Concent Red Cell Distribution Width 21.9 Platelet Count 439 Mean Platelet Volume 6.7 Neutrophils (%) (Auto) 81.4 Lymphocytes (%) (Auto) 6.3 Monocytes (%) (Auto) 10.0 Eosinophils (%) (Auto) 0.2 Basophils (%) (Auto) 2.1 Neutrophils # (Auto) 13.1 Lymphocytes # (Auto) 1.0 Monocytes # (Auto) 1.6 Eosinophils # (Auto) 0.0 Basophils # (Auto) 0.3 CBC Comment AUTO DIFF Differential Comment AUTO DIFF CONFIRMED Prothrombin Time 13.7 Prothromb Time International 1.2 Ratio Activated Partial 28.1 Thromboplast Time Sodium Level 131 Potassium Level 3.4 Chloride Level 94 Carbon Dioxide Level 28.0 Anion Gap 9 Blood Urea Nitrogen 7 Creatinine 0.45 Estimat Glomerular Filtration 137 Rate Random Glucose 105 Calcium Level 8.9 Total Bilirubin 0.5 Aspartate Amino Transf 8 (AST/SGOT) Alanine Aminotransferase 8 (ALT/SGPT) Alkaline Phosphatase 100 Troponin I LESS THAN 0.02 Total Protein 7.0 Albumin 2.1 Blood Type O POSITIVE Antibody Screen NEGATIVE Urine Collection Type CLEAN CATCH Urine Color YELLOW Urine Turbidity CLEAR Urine pH 7.0 Urine Specific [place] 1.022 Urine Protein NEG Urine Glucose (UA) NEG Urine Ketones NEG Urine Occult Blood TRACE Urine Nitrite NEG Urine Bilirubin NEG Urine Leukocyte Esterase SMALL Urine RBC 0-3 Urine WBC 3-5 Urine Squamous Epithelial 0-5 Cells Urine Amorphous Sediment MOD Microscopic Urinalysis Comment CULT NOT INDICATED Urine Collection Time 1205 Result Diagram: 09/28/16 1032 09/28/16 1032 Imaging Last Impressions Chest X-Ray 09/28/16948 Signed Impressions: Service Date/Time: Wednesday, September 28, 2016 10:06 - CONCLUSION: Enlargement of the previously seen right upper lobe mass. Jigar Belcher MD CT Angiography [id number]/28/16948 Signed Impressions: Service Date/Time: Wednesday, September 28, 2016 11:26 - CONCLUSION: Huge malignant appearing right upper lobe mass. Jigar Belcher MD Assessment and Plan Assessment and Plan A/P - generalized weakness- with history of lung cancer-with recent chemo consult PT and case management- fall precautions -cellulitis of lower extremities continue IV Clindamycin- check venous doppler to r/o DVT -lung cancer- has been on chemo- has a follow-up appointment with next month -anemia- due to chronic disease/ and chemo; will monitor H/H and transfuse as needed. -mild hypokalemia; will replace as needed. -DVT prophylaxis with subq Lovenox Discussed Condition With the patient and her son at the bedside. Physician Certification 2 Midnight Certification Type: Admission for Inpatient Services Order for Inpatient Services The services are ordered in accordance with Medicare regulations or non- Medicare payer requirements, as applicable. In the case of services not specified as inpatient-only, they are appropriately provided as inpatient services in accordance with the 2-midnight benchmark. Estimated LOS (days): 2 days is the estimated time the patient will need to remain in the hospital, assuming treatment plan goals are met and no additional complications. Post-Hospital Plan: Not yet determined Problem Qualifiers (1) Cellulitis: Qualified Code: L03.119 - Cellulitis of lower extremity, unspecified laterality Jesus Bullard MD Sep 28, 2016 13:03
--- NOTE | 2016-09-28 14:57 | RADRPT ---
EXAM DATE/TIME: 09/28/2016 14:06 [facility] COMPARISON: No previous studies available for comparison. INDICATIONS : Bilateral leg swelling. MEDICAL HISTORY : Glasses. Lung cancer. COPD. Chemotherapy. SURGICAL HISTORY : Tonsillectomy.Appendectomy. Hysterectomy.Breast implants. Back surgery. ENCOUNTER: Initial ACUITY: 2 weeks PAIN SCORE: 1/10 LOCATION: Bilateral legs. TECHNIQUE: Venous ultrasound of the left and right leg was performed from the inguinal ligament to the proximal calf. Real-time, color Doppler and spectral tracing, compression and augmentation techniques were us ed. FINDINGS: RIGHT LEG: There is normal compressibility of the deep venous system from the inguinal region to the proximal ca lf. No echogenic clot is seen in the lumen of the common femoral, femoral, popliteal, and posterior tibial veins. There is a normal response of the venous system to proximal and distal augmentation an d respiration. LEFT LEG: There is normal compressibility of the deep venous system from the inguinal region to the proximal ca lf. No echogenic clot is seen in the lumen of the common femoral, femoral, popliteal, and posterior tibial veins. There is a normal response of the venous system to proximal and distal augmentation an d respiration. CONCLUSION: Normal examination. Jigar Belcher MD on September 28, 2016 at 14:55 Board Certified Radiologist. This report was verified electronically.
[2016-09-28] MEDS: ENOXAPARIN SODIUM 40 MG/0.4 ML SYRINGE SQ SCH (16:51)
[2016-09-28] MEDS: MIRTAZAPINE 15 MG TAB PO SCH (20:32)
[2016-09-28] MEDS: ACETAMINOPHEN 325 MG TAB PO PRN (20:32)
[2016-09-28] MEDS: SODIUM CHLORIDE 0.9% FLUSH 10 ML FLUSH IVF PRN (20:32)
[2016-09-28] MEDS: CLINDAMYCIN INJ 600 MG in SODIUM CHLORIDE 0.9% INJ 100 ML IV SCH (22:06)
[2016-09-29] VITALS (17 sets, daily range): BP systolic 91–110; BP diastolic 46–78; PULSE 91–108; RESP 12–20; TEMP 96.9–100.2; O2SAT 93–100
[2016-09-29] MEDS: CLINDAMYCIN INJ 600 MG in SODIUM CHLORIDE 0.9% INJ 100 ML IV SCH ×3 (04:36→22:48)
[2016-09-29 07:57] LABS: AUTOMATED NEUTROPHIL # 9.8 TH/MM3 (1.8-7.7); BASOPHIL % 0.2 % (0.0-2.0); EOSINOPHIL # 0.1 TH/MM3 (0-0.4); EOSINOPHIL % 0.6 % (0.0-4.0); HEMATOCRIT 21.3 % (35.0-46.0); LYMPH % 6.9 % (9.0-44.0); LYMPHOCYTE # 0.9 TH/MM3 (1.0-4.8); MEAN CELL VOLUME 95.5 FL (80.0-100.0); MEAN CORPUSCULAR HEMOGLOBIN 31.1 PG (27.0-34.0); MEAN CORPUSCULAR HGB CONC 32.5 % (32.0-36.0); MONO % 13.1 % (0.0-8.0); NEUT % 79.2 % (16.0-70.0); PLATELET COUNT 404 TH/MM3 (150-450); RED BLOOD COUNT 2.23 MIL/MM3 (4.00-5.30); RED CELL DISTRIBUTION WIDTH 22.8 % (11.6-17.2); WHITE BLOOD COUNT 12.4 TH/MM3 (4.0-11.0)
[2016-09-29 08:18] LABS: HEMO FLAGS AUTO DIFF
[2016-09-29 08:36] LABS: SCAN/DIFF AUTO DIFF CONFIRMED
--- NOTE | 2016-09-29 08:44 | HHI.PR ---
Subjective Remarks in no acute distress. T max 101.2. still with some generalized weakness. Objective Vitals Vital Signs Date Time Temp Pulse Resp B/P Pulse Ox O2 Delivery O2 Flow Rate FiO2 09/29/16 07:48 95 21 09/29/16 04:00 96.9 99 20 93/52 95 09/29/16 00:00 98.3 98 20 91/50 97 09/28/16 22:02 98.4 09/28/16 21:16 92 21 09/28/16 20:00 101.4 116 18 98/56 94 09/28/16 16:50 94 21 09/28/16 16:00 99.6 117 18 104/55 96 09/28/16 14:35 100 16 105/60 96 Room Air 09/28/16 14:35 96 Room Air 09/28/16 13:05 98.5 100 16 92/49 96 Room Air 09/28/16 13:03 100 16 92/49 98 Room Air 09/28/16 13:03 100 10 98 Nasal Cannula 09/28/16 11:21 98.2 100 16 98/64 100 Nasal Cannula 3 09/28/16 11:03 102 16 91/46 100 Nasal Cannula 3 09/28/16 11:03 16 100 Nasal Cannula 3 09/28/16 10:14 112 16 96/52 96 Nasal Cannula 3 09/28/16 10:14 Nasal Cannula 3 09/28/16 10:07 96 Nasal Cannula 3 09/28/16 10:07 96 Nasal Cannula 3 09/28/16 09:36 120 16 99 Nasal Cannula 3 09/28/16 09:29 98.6 94 16 95/60 99 I/O 09/28/16 09/28/16 09/28/16 09/29/16 09/29/16 09/29/16 07:00 15:00 23:00 07:00 15:00 23:00 Intake Total 500 ml 250 ml Balance 500 ml 250 ml Intake Oral 0 ml IV Total 500 ml 250 ml # Voids 6 Result Diagram: 09/29/16 0640 09/28/16 1032 Imaging Last Impressions Chest X-Ray 09/28/16 0949 Signed Impressions: Service Date/Time: Wednesday, September 28, 2016 10:06 - CONCLUSION: Enlargement of the previously seen right upper lobe mass. Jigar Belcher MD CT Angiography 09/28/16 0949 Signed Impressions: Service Date/Time: Wednesday, September 28, 2016 11:26 - CONCLUSION: Huge malignant appearing right upper lobe mass. Jigar Belcher MD Lower Extremity Ultrasound 09/28/16 0000 Signed Impressions: Service Date/Time: Wednesday, September 28, 2016 14:06 - CONCLUSION: Normal examination. Jigar Belcher MD Objective Remarks GENERAL: This is a well-nourished, well-developed patient, in no apparent distress. CARDIOVASCULAR: Regular rate and regular rhythm without murmurs, gallops, or rubs. RESPIRATORY: Clear to auscultation. Breath sounds equal bilaterally. No wheezes , rales, or rhonchi. GASTROINTESTINAL: Abdomen soft, non-tender, nondistended. Normal, active bowel sounds MUSCULOSKELETAL: improved bilateral pedal edema NEURO: Alert & Oriented x4 to person, place, time, situation. Moves all ext x4 skin; erythema both lower extremities seems to be improving. Procedures none Medications and IVs Current Medications Sodium Chloride 2 ml 2 ml UNSCH PRN IVF FLUSH AFTER USING IV ACCESS Last administered on 09/28/16 20:32; Start 09/28/16 at 10:00 Sodium Chloride (NS 1000 ml Inj) 1,000 ml @ 999 mls/hr BOLUS ONCE IV Last administered on 09/28/16 10:48; Start 09/28/16 at 10:00; Stop 09/28/16 at 11:00 ; Status DC Iohexol 75 ml 75 ml STK-MED ONCE IV Last administered on 09/28/16 11:53; Start 09/28/16 at 11:53; Stop 09/28/16 at 11:54; Status DC Clindamycin Phosphate/Sodium Chloride (Cleocin Inj/NS Inj) 104 ml @ 208 mls/hr ONCE ONCE IV Last administered on 09/28/16 12:46; Start 09/28/16 at 12:15; Stop 09/28/16 at 12:44; Status DC Ondansetron HCl (Zofran Inj) 4 mg Q8HR PRN IV PUSH NAUSEA; Start 09/28/16 at 12 :45 Acetaminophen 650 mg 650 mg Q4H PRN PO FEVER/PAIN 1-5 Last administered on 09/28 20:32; Start 09/28/16 at 12:45 Clindamycin Phosphate/Sodium Chloride (Cleocin Inj/NS Inj) 104 ml @ 208 mls/hr Q8H IV Last administered on 09/29/16 04:36; Start 09/28/16 at 21:00 Albuterol Sulfate (Albuterol Neb) 1.25 mg Q4HR NEB PRN NEB SHORTNESS OF BREATH ; Start 09/28/16 at 12:45 Enoxaparin Sodium (Lovenox Inj) 40 mg Q24H SQ Last administered on 09/28/16 16 :51; Start 09/28/16 at 14:00 Potassium Chloride 20 meq 20 meq ONCE ONCE PO Last administered on 09/28/16 13:28; Start 09/28/16 at 12:45; Stop 09/28/16 at 13:16; Status DC Sodium Chloride (NS 500 ml Inj) 500 ml @ 50 mls/hr Q10H ONCE IV Last administered on 09/28/16 13:31; Start 09/28/16 at 12:45; Stop 09/28/16 at 22:44 ; Status DC Mirtazapine (Remeron) 15 mg HS PO Last administered on 09/28/16 20:32; Start 09/28/16 at 21:00 Iohexol (Omnipaque 350 Inj) 75 ml STK-MED ONCE IV ; Start 09/28/16 at 13:08; Stop 09/28/16 at 13:09; Status Cancel A/P Assessment and Plan A/P - generalized weakness- with history of lung cancer-with recent chemo consulted PT and case management- fall precautions -cellulitis of lower extremities continue IV Clindamycin- obtain blood cultures venous doppler of lower extremities negative for DVT -lung cancer- has been on chemo- has a follow-up appointment with next month -anemia- due to chronic disease/ and chemo; now with further drop in H/H- will transfused with PRBC today and continue to monitor H/H -mild hypokalemia; replaced. -DVT prophylaxis with subq Lovenox Jesus Bullard MD Sep 29, 2016 08:44
[2016-09-29] MEDS ORDERED: FUROSEMIDE 20 MG/2 ML VIAL IV PUSH PRN (09:00)
[2016-09-29] MEDS: ENOXAPARIN SODIUM 40 MG/0.4 ML SYRINGE SQ SCH (12:47)
--- NOTE | 2016-09-29 18:31 | EKG ---
Date Performed: 09/28/2016 Time Performed: 09:40:58 PTAGE: 71 years EKG: SINUS TACHYCARDIA ABNORMAL RHYTHM ECG INTERPRETATION BASED ON A DEFAULT AGE OF 40 YEARS PREVIOUS TRACING 06/22/2016 2 15.45.10 Compared to prior tracing no significant change DOCTOR: Chris Marx Interpretating Date/Time 09/29/2016 18:30:35
[2016-09-29] MEDS: MIRTAZAPINE 15 MG TAB PO SCH (22:48)
[2016-09-30 00:30] VITALS: BP 105/60; PULSE 101; RESP 20; TEMP 98.3; O2SAT 94
[2016-09-30] MEDS: CLINDAMYCIN INJ 600 MG in SODIUM CHLORIDE 0.9% INJ 100 ML IV SCH ×3 (04:49→20:39)
[2016-09-30 06:08] VITALS: BP 142/87; PULSE 60; RESP 20; TEMP 96.4; O2SAT 94
[2016-09-30 06:51] LABS: AUTOMATED NEUTROPHIL # 10.9 TH/MM3 (1.8-7.7); BASOPHIL % 0.3 % (0.0-2.0); EOSINOPHIL # 0.1 TH/MM3 (0-0.4); EOSINOPHIL % 0.6 % (0.0-4.0); HEMATOCRIT 30.4 % (35.0-46.0); LYMPHOCYTE # 1.1 TH/MM3 (1.0-4.8); MEAN CELL VOLUME 89.4 FL (80.0-100.0); MEAN CORPUSCULAR HEMOGLOBIN 29.8 PG (27.0-34.0); MEAN CORPUSCULAR HGB CONC 33.3 % (32.0-36.0); MONO % 11.7 % (0.0-8.0); NEUT % 79.4 % (16.0-70.0); PLATELET COUNT 403 TH/MM3 (150-450); WHITE BLOOD COUNT 13.7 TH/MM3 (4.0-11.0)
[2016-09-30 06:58] LABS: HEMO FLAGS DIFF FINAL
[2016-09-30 08:00] VITALS: BP 128/88; PULSE 91; RESP 16; TEMP 98; O2SAT 93; O2SAT 96
--- NOTE | 2016-09-30 08:00 | HHI.PR ---
Subjective Remarks in no acute distress. denies pain. says that she feels a little stronger today. T max 100.2. no other new complaints. Objective Vitals Vital Signs Date Time Temp Pulse Resp B/P Pulse Ox O2 Delivery O2 Flow Rate FiO2 09/30/16 00:30 98.3 101 20 105/60 94 09/29/16 20:15 100.2 108 20 110/78 97 09/29/16 20:08 95 21 09/29/16 17:07 100.2 103 12 103/59 98 09/29/16 16:00 97.6 103 17 105/60 93 09/29/16 14:03 98.3 93 20 106/58 09/29/16 12:00 97.7 103 19 105/55 99 09/29/16 11:46 99.6 91 18 99/55 99 09/29/16 11:35 99.4 94 16 110/55 100 09/29/16 11:20 99.7 107 14 100/57 99 09/29/16 11:04 99.7 107 16 96/61 98 09/29/16 10:46 97.1 102 20 100/55 98 09/29/16 10:38 98.4 102 18 94/49 98 09/29/16 10:29 98.4 102 20 94/49 98 09/29/16 08:00 97.6 102 18 94/46 94 I/O 09/29/16 09/29/16 09/29/16 09/30/16 09/30/16 09/30/16 06:59 14:59 22:59 06:59 14:59 22:59 Intake Total 250 ml 600 ml 160 ml 60 ml Balance 250 ml 600 ml 160 ml 60 ml Intake Oral 0 ml 600 ml 60 ml 60 ml IV Total 250 ml 100 ml # Voids 6 4 3 2 # Bowel Movements 0 0 Result Diagram: 09/30/16 0545 09/28/16 1032 Imaging Last Impressions Chest X-Ray 09/28/16948 Signed Impressions: Service Date/Time: Wednesday, September 28, 2016 10:06 - CONCLUSION: Enlargement of the previously seen right upper lobe mass. Jigar Belcher MD CT Angiography 09/28/16948 Signed Impressions: Service Date/Time: Wednesday, September 28, 2016 11:26 - CONCLUSION: Huge malignant appearing right upper lobe mass. Jigar Belcher MD Lower Extremity Ultrasound 09/28/16 0000 Signed Impressions: Service Date/Time: Friday, September 28, 2016 14:06 - CONCLUSION: Normal examination. Jigar Belcher MD Objective Remarks GENERAL: This is a well-nourished, well-developed patient, in no apparent distress. CARDIOVASCULAR: Regular rate and regular rhythm without murmurs, gallops, or rubs. RESPIRATORY: Clear to auscultation. Breath sounds equal bilaterally. No wheezes , rales, or rhonchi. GASTROINTESTINAL: Abdomen soft, non-tender, nondistended. Normal, active bowel sounds MUSCULOSKELETAL: improved bilateral pedal edema NEURO: Alert & Oriented x4 to person, place, time, situation. Moves all ext x4 skin; erythema both lower extremities seems to be improving. Procedures none Medications and IVs Current Medications Sodium Chloride 2 ml 2 ml UNSCH PRN IVF FLUSH AFTER USING IV ACCESS Last administered on 09/28/16 20:32; Start 09/28/16 at 10:00 Sodium Chloride (NS 1000 ml Inj) 1,000 ml @ 999 mls/hr BOLUS ONCE IV Last administered on 09/28/16 10:48; Start 09/28/16 at 10:00; Stop 09/28/16 at 11:00 ; Status DC Iohexol 75 ml 75 ml STK-MED ONCE IV Last administered on 09/28/16 11:53; Start 09/28/16 at 11:53; Stop 09/28/16 at 11:54; Status DC Clindamycin Phosphate/Sodium Chloride (Cleocin Inj/NS Inj) 104 ml @ 208 mls/hr ONCE ONCE IV Last administered on 09/28/16 12:46; Start 09/28/16 at 12:15; Stop 09/28/16 at 12:44; Status DC Ondansetron HCl (Zofran Inj) 4 mg Q8HR PRN IV PUSH NAUSEA; Start 09/28/16 at 12 :45 Acetaminophen 650 mg 650 mg Q4H PRN PO FEVER/PAIN 1-5 Last administered on 09/28 20:32; Start 09/28/16 at 12:45 Clindamycin Phosphate/Sodium Chloride (Cleocin Inj/NS Inj) 104 ml @ 208 mls/hr Q8H IV Last administered on 09/30/16 04:49; Start 09/28/16 at 21:00 Albuterol Sulfate (Albuterol Neb) 1.25 mg Q4HR NEB PRN NEB SHORTNESS OF BREATH ; Start 09/28/16 at 12:45 Enoxaparin Sodium (Lovenox Inj) 40 mg Q24H SQ Last administered on 09/29/16 12 :47; Start 09/28/16 at 14:00 Potassium Chloride 20 meq 20 meq ONCE ONCE PO Last administered on 09/28/16 13:28; Start 09/28/16 at 12:45; Stop 09/28/16 at 13:16; Status DC Sodium Chloride (NS 500 ml Inj) 500 ml @ 50 mls/hr Q10H ONCE IV Last administered on 09/28/16 13:31; Start 09/28/16 at 12:45; Stop 09/28/16 at 22:44 ; Status DC Mirtazapine (Remeron) 15 mg HS PO Last administered on 09/29/16 22:48; Start 09/28/16 at 21:00 Iohexol (Omnipaque 350 Inj) 75 ml STK-MED ONCE IV ; Start 09/28/16 at 13:08; Stop 09/28/16 at 13:09; Status Cancel Furosemide (Lasix Inj) 20 mg UNSCH X1 PRN IV PUSH one dose after the first unit Last administered on 09/29/16 13:57; Start 09/29/16 at 09:00; Stop at 21:00; Status DC A/P Assessment and Plan A/P - generalized weakness- with history of lung cancer-with recent chemo consulted PT and case management- fall precautions -cellulitis of lower extremities- clinically improving continue IV Clindamycin- follow the blood cultures venous doppler of lower extremities negative for DVT -lung cancer- has been on chemo- has a follow-up appointment with next month will consult -anemia- due to chronic disease/ and chemo; s/p PRBC transfusion with improved H /H.- continue to monitor -mild hypokalemia; replaced. -DVT prophylaxis with subq Lovenox Discharge Planning case management for dc planning to SNF. dc planning within the next 24-48 hrs if stable. Jesus Bullard MD Sep 30, 2016 08:00
--- NOTE | 2016-09-30 11:41 | MB ---
cc: NIMISHA LOO DATE OF CONSULTATION: 09/30/2016 REASON FOR CONSULTATION Patient with a history of non-small cell lung cancer who presents to the hospital with extreme weakness. HISTORY OF PRESENT ILLNESS Ms. Olivarez is a 71-year-old female who has a diagnosis of non-small cell lung cancer, subtype unknown. In December of 2015 she presented with progressive weight loss, loss of appetite and cough, and was found to have a right upper lobe mass which was quite large. This was a 10.8 x 8.4 cm mass. She also had hilar lymphadenopathy. There was a mild compression deformity at T10 and T11 but there was no evidence of metastatic disease to the bone. She underwent a CT-guided biopsy which confirmed necrotic non-small cell lung cancer. Since this was stage III lung cancer she was recommended concurrent chemotherapy and radiation and started to receive both treatments. However, her performance status declined during the course of her treatment and she has not received any further radiation treatments. She has had numerous interruptions with respect to her chemotherapy. She is receiving carboplatin and Alimta. She has poor oral intake. She is also weak. Her symptoms worsened and she presented to the emergency room. She was found to have bilateral lower extremity cellulitis. Additionally, she has also been anemic during the course of her admission. She does not have any fevers or chills. No cough or congestion. No abdominal pain. No diarrhea or constipation. REVIEW OF SYSTEMS A comprehensive 14-point review of systems was completed which is negative except as described in the HPI. PAST MEDICAL HISTORY 1. Non-small cell lung cancer, stage IIIB. 2. COPD. 3. Tobacco abuse. 4. Hypertension. 5. Malnutrition. PAST SURGICAL HISTORY 1. Lung biopsy. 2. Appendectomy. 3. Hysterectomy. MEDICATIONS 1. Clindamycin 600 mg IV q.8h. 2. Mirtazapine 15 mg p.o. q.h.s. 3. Lovenox 40 mg subcu daily. 4. Zofran 4 mg IV q.8h. 5. Tylenol 650 mg p.o. q.4h. 6. Albuterol 1.25 mg q.4h. p.r.n. ALLERGIES No known drug allergies. FAMILY HISTORY Family history was reviewed and noncontributory to this admission. SOCIAL HISTORY She has a long history of tobacco abuse. No alcohol abuse. No illicit drug use. VITAL SIGNS Blood pressure 128/88, pulse in the 90s, temperature 98. O2 sats are 96% on two liters nasal cannula. LABORATORY WBC 13.7, hemoglobin 10.1, MCV 89.4, platelet count 403. Serum chemistries show sodium 131, potassium 3.4, chloride 94, CO2 28, BUN 7, creatinine 0.45, total bilirubin 0.5, AST 8, ALT 8, alk phos 100, albumin 2.1. Blood cultures are pending. IMAGING CT angiogram: Right upper lobe mass seen which is 12.2 cm. It extends to the right hilum and causes mass effect on the right upper lobe bronchus. ASSESSMENT AND PLAN This is a 71-year-old female with a history of non-small cell lung cancer who has been receiving chemotherapy consisting of carboplatin and Alimta with dose reduction; however, she has had multiple treatment interruptions due to declining performance status and poor nutrition. She presents to the emergency room with bilateral lower extremity pain, failure to thrive and malnutrition. 1. Severe deconditioning, failure to thrive and malnutrition. I agree with physical therapy and dietary consult. Her albumin is very low. Ensure t.i.d. with meals. 2. Acute anemia. She has received packed red blood cell transfusion. The anemia is most likely secondary to her chemotherapy. We will obtain B12 and folate levels. Iron study will not be reliable in the setting of recent blood transfusions. We should obtain a stool hemoccult to rule out any GI causes of anemia. 3. Leukocytosis/cellulitis. Currently on IV clindamycin. Blood cultures are pending. Will follow-up. 4. History of non-small cell lung cancer with unknown subtype. Recent imaging of the chest shows a right upper lobe mass which is approximately 12.2 cm. It extends to the right hilum and causes mass effect on the right upper lobe. Will hold off on any chemotherapy for now. I will discuss this case with Dr. Antunez. The patient was started on radiation treatment in the past. Will see if he can give her some additional treatment to help relieve the mass effect. Thank you for allowing me to participate in the care of this patient. I will continue to follow this patient along. MD JOSUE Lam/KELLEY /11:10 AM /11:23 AM
[2016-09-30 12:00] VITALS: BP 102/68; PULSE 104; RESP 17; TEMP 99; O2SAT 92
[2016-09-30] MEDS: ENOXAPARIN SODIUM 40 MG/0.4 ML SYRINGE SQ SCH (14:39)
[2016-09-30 16:00] VITALS: BP 136/72; PULSE 99; RESP 17; TEMP 98.8; O2SAT 94
[2016-09-30 20:00] VITALS: BP 117/64; PULSE 112; RESP 18; TEMP 100.8; O2SAT 90
[2016-09-30] MEDS: MIRTAZAPINE 15 MG TAB PO SCH (20:39)
[2016-10-01] VITALS (7 sets, daily range): BP systolic 108–119; BP diastolic 61–74; PULSE 93–112; RESP 16–20; TEMP 97.7–100.9; O2SAT 92–98
[2016-10-01] MEDS: CLINDAMYCIN INJ 600 MG in SODIUM CHLORIDE 0.9% INJ 100 ML IV SCH ×3 (04:57→22:06)
--- NOTE | 2016-10-01 09:21 | HHI.PR ---
Subjective Remarks in no acute distress. denies pain. T max 100.8. Objective Vitals Vital Signs Date Time Temp Pulse Resp B/P Pulse Ox O2 Delivery O2 Flow Rate FiO2 10/01/16 07:55 98.4 99 20 119/74 93 10/01/16 00:00 99.4 106 16 111/65 98 09/30/16 20:00 100.8 112 18 117/64 90 09/30/16 16:00 98.8 99 17 136/72 94 09/30/16 12:00 99.0 104 17 102/68 92 I/O 09/30/16 09/30/16 09/30/16 10/01/16 10/01/16 10/01/16 07:00 15:00 23:00 07:00 15:00 23:00 Intake Total 160 ml 60 ml 220 ml 240 ml Balance 160 ml 60 ml 220 ml 240 ml Intake Oral 60 ml 60 ml 220 ml 240 ml IV Total 100 ml # Voids 3 2 4 2 # Bowel Movements 0 1 0 Result Diagram: 09/30/16 0545 09/28/16 1032 Imaging Last Impressions Chest X-Ray 09/28/16948 Signed Impressions: Service Date/Time: Wednesday, September 28, 2016 10:06 - CONCLUSION: Enlargement of the previously seen right upper lobe mass. Jigar Belcher MD CT Angiography 09/28/16948 Signed Impressions: Service Date/Time: Wednesday, September 28, 2016 11:26 - CONCLUSION: Huge malignant appearing right upper lobe mass. Jigar Belcher MD Lower Extremity Ultrasound 09/28/16 0000 Signed Impressions: Service Date/Time: Wednesday, September 28, 2016 14:06 - CONCLUSION: Normal examination. Jigar Belcher MD Objective Remarks GENERAL: This is a well-nourished, well-developed patient, in no apparent distress. CARDIOVASCULAR: Regular rate and regular rhythm without murmurs, gallops, or rubs. RESPIRATORY: Clear to auscultation. Breath sounds equal bilaterally. No wheezes , rales, or rhonchi. GASTROINTESTINAL: Abdomen soft, non-tender, nondistended. Normal, active bowel sounds MUSCULOSKELETAL: improved bilateral pedal edema NEURO: Alert & Oriented x4 to person, place, time, situation. Moves all ext x4 skin; erythema both lower extremities seems to be improving. Procedures none Medications and IVs Current Medications Sodium Chloride 2 ml 2 ml UNSCH PRN IVF FLUSH AFTER USING IV ACCESS Last administered on 09/28/16 20:32; Start 09/28/16 at 10:00 Sodium Chloride (NS 1000 ml Inj) 1,000 ml @ 999 mls/hr BOLUS ONCE IV Last administered on 09/28/16 10:48; Start 09/28/16 at 10:00; Stop 09/28/16 at 11:00 ; Status DC Iohexol 75 ml 75 ml STK-MED ONCE IV Last administered on 09/28/16 11:53; Start 09/28/16 at 11:53; Stop 09/28/16 at 11:54; Status DC Clindamycin Phosphate/Sodium Chloride (Cleocin Inj/NS Inj) 104 ml @ 208 mls/hr ONCE ONCE IV Last administered on 09/28/16 12:46; Start 09/28/16 at 12:15; Stop 09/28/16 at 12:44; Status DC Ondansetron HCl (Zofran Inj) 4 mg Q8HR PRN IV PUSH NAUSEA; Start 09/28/16 at 12 :45 Acetaminophen 650 mg 650 mg Q4H PRN PO FEVER/PAIN 1-5 Last administered on 09/28 20:32; Start 09/28/16 at 12:45 Clindamycin Phosphate/Sodium Chloride (Cleocin Inj/NS Inj) 104 ml @ 208 mls/hr Q8H IV Last administered on 10/01/16 04:57; Start 09/28/16 at 21:00 Albuterol Sulfate (Albuterol Neb) 1.25 mg Q4HR NEB PRN NEB SHORTNESS OF BREATH ; Start 09/28/16 at 12:45 Enoxaparin Sodium (Lovenox Inj) 40 mg Q24H SQ Last administered on 09/30/16 14 :39; Start 09/28/16 at 14:00 Potassium Chloride 20 meq 20 meq ONCE ONCE PO Last administered on 09/28/16 13:28; Start 09/28/16 at 12:45; Stop 09/28/16 at 13:16; Status DC Sodium Chloride (NS 500 ml Inj) 500 ml @ 50 mls/hr Q10H ONCE IV Last administered on 09/28/16 13:31; Start 09/28/16 at 12:45; Stop 09/28/16 at 22:44 ; Status DC Mirtazapine (Remeron) 15 mg HS PO Last administered on 09/30/16 20:39; Start 09/28/16 at 21:00 Iohexol (Omnipaque 350 Inj) 75 ml STK-MED ONCE IV ; Start 09/28/16 at 13:08; Stop 09/28/16 at 13:09; Status Cancel Furosemide (Lasix Inj) 20 mg UNSCH X1 PRN IV PUSH one dose after the first unit Last administered on 09/29/16 13:57; Start 09/29/16 at 09:00; Stop at 21:00; Status DC A/P Assessment and Plan A/P - generalized weakness- with history of lung cancer-with recent chemo consulted PT and case management- fall precautions -cellulitis of lower extremities- clinically improving continue IV Clindamycin- blood cultures negative so far- monitor temps. venous doppler of lower extremities negative for DVT -lung cancer- has been on chemo- oncology consult appreciated. -anemia- due to chronic disease/ and chemo; s/p PRBC transfusion with improved H /H.- continue to monitor -mild hypokalemia; replaced. -DVT prophylaxis with subq Lovenox Discharge Planning dc to SNF within the next one-two days if stable. Jesus Bullard MD Oct 01, 2016 09:21
[2016-10-01] MEDS: ENOXAPARIN SODIUM 40 MG/0.4 ML SYRINGE SQ SCH (13:58)
[2016-10-01] MEDS: SODIUM CHLORIDE 0.9% FLUSH 10 ML FLUSH IVF PRN (22:05)
[2016-10-01] MEDS: ACETAMINOPHEN 325 MG TAB PO PRN (22:08)
[2016-10-01] MEDS: MIRTAZAPINE 15 MG TAB PO SCH (22:11)
[2016-10-02] VITALS: BP 113/57; PULSE 107; RESP 18; TEMP 97.2; O2SAT 94
[2016-10-02] MEDS: SODIUM CHLORIDE 0.9% FLUSH 10 ML FLUSH IVF PRN (04:48)
[2016-10-02] MEDS: CLINDAMYCIN INJ 600 MG in SODIUM CHLORIDE 0.9% INJ 100 ML IV SCH ×2 (04:48→13:42)
[2016-10-02 04:54] VITALS: TEMP 96.6
[2016-10-02 06:22] LABS: AUTOMATED NEUTROPHIL # 8.2 TH/MM3 (1.8-7.7); BASOPHIL # 0.5 TH/MM3 (0-0.2); BASOPHIL % 4.2 % (0.0-2.0); EOSINOPHIL # 0.1 TH/MM3 (0-0.4); EOSINOPHIL % 0.6 % (0.0-4.0); HEMATOCRIT 34.6 % (35.0-46.0); LYMPH % 11.7 % (9.0-44.0); LYMPHOCYTE # 1.4 TH/MM3 (1.0-4.8); MEAN CELL VOLUME 91.3 FL (80.0-100.0); MEAN CORPUSCULAR HEMOGLOBIN 30.4 PG (27.0-34.0); MEAN CORPUSCULAR HGB CONC 33.3 % (32.0-36.0); MONO % 14.6 % (0.0-8.0); NEUT % 68.9 % (16.0-70.0); PLATELET COUNT 366 TH/MM3 (150-450); RED BLOOD COUNT 3.78 MIL/MM3 (4.00-5.30); RED CELL DISTRIBUTION WIDTH 19.9 % (11.6-17.2); WHITE BLOOD COUNT 11.9 TH/MM3 (4.0-11.0)
[2016-10-02 06:28] LABS: HEMO FLAGS DIFF FINAL
[2016-10-02 06:29] LABS: POTASSIUM 3.4 MEQ/L (3.5-5.1)
[2016-10-02 06:36] LABS: BICARBONATE 26.5 MEQ/L (21.0-32.0)
[2016-10-02 08:00] VITALS: BP 106/68; PULSE 93; RESP 16; TEMP 97.6; O2SAT 99
[2016-10-02 09:00] VITALS: O2SAT 97
--- NOTE | 2016-10-02 10:44 | HHI.PR ---
Subjective Remarks The patient was feeling well and hoping to go to [facility] later today. She said she was breathing comfortably. She has been eating minimally. She has had some loose stools. Family at the bedside. Discussed with case management. Objective Vitals Vital Signs Date Time Temp Pulse Resp B/P Pulse Ox O2 Delivery O2 Flow Rate FiO2 10/02/16 08:00 97.6 93 16 106/68 99 10/02/16 04:54 96.6 10/02/16 00:00 97.2 107 18 113/57 94 10/01/16 20:42 93 21 10/01/16 20:00 100.9 93 18 109/61 92 10/01/16 16:00 100.5 112 20 108/61 92 10/01/16 12:00 97.7 104 20 108/64 96 I/O 10/01/16 10/01/16 10/01/16 10/02/16 10/02/16 10/02/16 07:00 15:00 23:00 07:00 15:00 23:00 Intake Total 240 ml 630 ml 100 ml 130 ml Balance 240 ml 630 ml 100 ml 130 ml Intake Oral 240 ml 630 ml IV Total 100 ml 130 ml # Voids 2 3 # Bowel Movements 0 1 Result Diagram: 10/02/16 0600 10/02/16 06 Imaging Last Impressions Chest X-Ray 09/28/16948 Signed Impressions: Service Date/Time: Wednesday, September 28, 2016 10:06 - CONCLUSION: Enlargement of the previously seen right upper lobe mass. Jigar Belcher MD CT Angiography 09/28/16948 Signed Impressions: Service Date/Time: Wednesday, September 28, 2016 11:26 - CONCLUSION: Huge malignant appearing right upper lobe mass. Jigar Belcher MD Lower Extremity Ultrasound 09/28/16 0000 Signed Impressions: Service Date/Time: Wednesday, September 28, 2016 14:06 - CONCLUSION: Normal examination. Jigar Belcher MD Objective Remarks GENERAL: This is a well-nourished, well-developed patient, in no apparent distress. CARDIOVASCULAR: Regular rate and regular rhythm without murmurs, gallops, or rubs. RESPIRATORY: Decreased breath sounds in the right upper lobe. GASTROINTESTINAL: Abdomen soft, non-tender, nondistended. Normoactive bowel sounds. MUSCULOSKELETAL: improved bilateral pedal edema. NEURO: Alert & Oriented x4 to person, place, time, situation. Moves all ext x4. SKIN: Erythema both lower extremities seems to be improving. Procedures none Medications and IVs Current Medications Medications (Trade) Dose Ordered Sig/Khanh Route Start Time Stop Time Status Last Admin (NS Flush) 2 ml UNSCH PRN IVF 09/28/16 10:00 10/02/16 04:48 (Zofran Inj) 4 mg Q8HR PRN IV PUSH 09/28/16 12:45 Acetaminophen 650 mg 650 mg Q4H PRN PO 09/28/16 12:45 10/01/16 22:08 (Cleocin Inj/NS Inj) 104 ml @ 208 mls/hr Q8H IV 09/28/16 21:00 10/02/16 04:48 (Lovenox Inj) 40 mg Q24H SQ 09/28/16 14:00 10/01/16 13:58 (Remeron) 15 mg HS PO 09/28/16 21:00 10/01/16 22:11 A/P Problem List: (1) Cellulitis ICD Code: L03.90 Status: Acute (2) Generalized weakness ICD Code: R53.1 Status: Acute Assessment and Plan Generalized weakness With history of lung cancer and recent chemo. - consulted PT and case management- fall precautions. D/c to [facility]. - [facility]. Cellulitis of lower extremities Clinically improving. Blood cultures NGTD. Venous doppler of lower extremities negative for DVT. Has been having low grade fevers, none since 10/01. - continue IV Clindamycin. Switch to PO doxycycline on d/c to cover for possible post-obstructive PNA component. Lung cancer Has been on chemo. Oncology consult appreciated. - follow up with oncology as an outpt. Anemia Due to chronic disease/ and chemo; s/p PRBC transfusion with improved H/H. - continue to monitor. - check Hemoccult. - follow CBC in 3-5 days. Hypokalemia Likely s/t to decreased PO intake. - KCl supplementation on discharge. - repeat BMP in 3-5 days. DVT prophylaxis with subq Lovenox Discharge Planning D/c to [facility] Problem Qualifiers (1) Cellulitis: Qualified Code: L03.119 - Cellulitis of lower extremity, unspecified laterality Wilman Lyn DO Oct 02, 2016 10:44
[2016-10-02] MEDS ORDERED: LACTTAB8 PO (11:03)
[2016-10-02] MEDS ORDERED: DOXY100C PO (11:03)
[2016-10-02] MEDS ORDERED: POTA-163 PO (11:04)
--- NOTE | 2016-10-02 11:05 | HHI.DCPOC ---
Discharge Care Plan Diagnosis: (1) Cellulitis (2) Generalized weakness (3) Lung cancer (4) Severe anemia (5) Physical deconditioning Goals to Promote Your Health * To prevent worsening of your condition and complications * To maintain your health at the optimal level Directions to Meet Your Goals Take your medications as prescribed Follow your dietary instruction Follow activity as directed Keep your appointments as scheduled Take your immunizations and boosters as scheduled If your symptoms worsen call your PCP, if no PCP go to Urgent Care Center or Emergency Room Smoking is Dangerous to Your Health. Avoid second hand smoke Call the 24-hour hour crisis hotline for domestic abuse at Wilman Lyn DO Oct 02, 2016 11:05
--- NOTE | 2016-10-02 11:15 | HHI.DS ---
Discharge Summary Admission Date Sep 28, 2016 at 12:36 Discharge Date: Oct 02, 2016 Admitting Diagnosis dehydration, anemia, cellulitis (1) Cellulitis ICD Code: L03.90 Diagnosis: Principal (2) Generalized weakness ICD Code: R53.1 Diagnosis: Principal Procedures none Brief History - From Admission patient is a 71 y/o female with history of lung cancer, was on chemo till about three weeks ago, presented to ER with generalized weakness. the son, at the bedside, says that she started to feel weak about two months ago and this has been progressively getting worse. he says that she feels so weak that she can hardly get out of the bed. she lives alone but being helped by her son. he's concerned that with this worsening weakness his mother won't be able to take care of herself. she denies any respiratory distress, cough, fever, chills, orthopnea. but she says that she noticed that her legs started to get swollen about a month ago. she noticed some redness of the legs as well. as mentioned before she doesn't report any fever at home. CBC/BMP: 10/02/16 0600 10/02/16 0600 Significant Findings Laboratory Tests Test 09/30/16 09/30/16 10/02/16 05:45 12:00 06:00 White Blood Count 13.7 TH/MM3 11.9 TH/MM3 (4.0-11.0) (4.0-11.0) Red Blood Count 3.40 MIL/MM3 3.78 MIL/MM3 (4.00-5.30) (4.00-5.30) Hemoglobin 10.1 GM/DL 11.5 GM/DL (11.6-15.3) (11.6-15.3) Hematocrit 30.4 % 34.6 % (35.0-46.0) (35.0-46.0) Red Cell Distribution Width 20.0 % 19.9 % (11.6-17.2) (11.6-17.2) Mean Platelet Volume 6.9 FL 6.9 FL (7.0-11.0) (7.0-11.0) Neutrophils (%) (Auto) 79.4 % (16.0-70.0) Lymphocytes (%) (Auto) 8.0 % (9.0-44.0) Monocytes (%) (Auto) 11.7 % 14.6 % (0.0-8.0) (0.0-8.0) Neutrophils # (Auto) 10.9 TH/MM3 8.2 TH/MM3 (1.8-7.7) (1.8-7.7) Monocytes # (Auto) 1.6 TH/MM3 1.7 TH/MM3 (0-0.9) (0-0.9) Vitamin B12 Level 1355 PG/ML (193-986) Basophils (%) (Auto) 4.2 % (0.0-2.0) Basophils # (Auto) 0.5 TH/MM3 (0-0.2) Sodium Level 135 MEQ/L (136-145) Potassium Level 3.4 MEQ/L (3.5-5.1) Blood Urea Nitrogen 6 MG/DL (7-18) Creatinine 0.40 MG/DL (0.50-1.00) Random Glucose 120 MG/DL (74-106) Calcium Level 8.4 MG/DL (8.5-10.1) Imaging Last Impressions Chest X-Ray 09/28/16948 Signed Impressions: Service Date/Time: Wednesday, September 28, 2016 10:06 - CONCLUSION: Enlargement of the previously seen right upper lobe mass. Jigar Belcher MD CT Angiography 09/28/16948 Signed Impressions: Service Date/Time: Wednesday, September 28, 2016 11:26 - CONCLUSION: Huge malignant appearing right upper lobe mass. Jigar Belcher MD Lower Extremity Ultrasound 09/28/16 0000 Signed Impressions: Service Date/Time: Wednesday, September 28, 2016 14:06 - CONCLUSION: Normal examination. Jigar Belcher MD PE at Discharge GENERAL: This is a well-nourished, well-developed patient, in no apparent distress. CARDIOVASCULAR: Regular rate and regular rhythm without murmurs, gallops, or rubs. RESPIRATORY: Decreased breath sounds in the right upper lobe. GASTROINTESTINAL: Abdomen soft, non-tender, nondistended. Normoactive bowel sounds. MUSCULOSKELETAL: improved bilateral pedal edema. NEURO: Alert & Oriented x4 to person, place, time, situation. Moves all ext x4. SKIN: Erythema both lower extremities seems to be improving. Hospital Course Generalized weakness With history of lung cancer and recent chemo. Consulted PT and case management. The pt was placed on fall precautions. The pt has been accepted by [facility]. Her diet was advanced. She will continue to work with physical therapy. Cellulitis of lower extremities Clinically improving. Blood cultures with NGTD. Venous doppler of lower extremities negative for DVT. Has been having low grade fevers, none since . She was continued on IV Clindamycin. Will switch to PO doxycycline on d/c to cover for possible post-obstructive PNA component. Added lactobacillus to antibiotic regimen. Lung cancer Has been on chemo. Oncology was consulted. She will follow up with oncology as an outpt. Anemia S/p PRBC transfusion with improved H/H. Follow CBC in 3-5 days and follow up with hematology. Hypokalemia The pt will be on KCl supplementation on discharge. She will repeat a BMP in 3- 5 days. Pt Condition on Discharge: Stable Discharge Disposition: Discharge to SNF Discharge Time: > 30 minutes Discharge Instructions DIET: Follow Instructions for: As Tolerated, No Restrictions Activities you can perform: Weight Bearing as Roseanne Follow up Referrals: Oncology - [address] Rebolledo PCP Follow-up - 1 Week New Orders: BASIC METABOLIC PROF - 3-5 Days CBC WITH DIFF - 3-5 Days New Medications: Doxycycline Hyclate (Doxycycline Hyclate) 100 Mg Cap 100 MG PO BID Infection #12 Ref 0 CAP Lactobacillus Acidophilus (Lactobacillus Acidophilus) 1 Tab Tab 1 TAB PO TIDAC Nutritional Supplement Days 6 Ref 0 TAB Potassium Chloride ER (Potassium Chloride ER) 20 Meq Tab 20 MEQ PO DAILY Electrolyte Replacement #7 Ref 0 TAB Continued Medications: Mirtazapine (Mirtazapine) 15 Mg Tab 15 MG PO HS Depression Control #30 Ref 0 TAB Ondansetron (Zofran) 8 Mg Tab 8 MG PO TID Nausea/Vomiting Ref 0 TAB Wilman Lyn DO Oct 02, 2016 11:15 Wilman Lyn DO Oct 02, 2016 11:15
[2016-10-02 12:00] VITALS: BP 100/66; PULSE 76; RESP 18; TEMP 98.9; O2SAT 97
[2016-10-02] MEDS: ENOXAPARIN SODIUM 40 MG/0.4 ML SYRINGE SQ SCH (13:43)
--- NOTE | 2016-10-03 00:26 | PD.ONC.PN ---
Subjective Subjective Remarks Late Note entry 10/01/16 OK to D/C to [facility] Discussed with Dr. Lyn O/P XRT treatment and chemotherapy Objective Data Date Time Temp Pulse Resp B/P Pulse Ox O2 Delivery O2 Flow Rate FiO2 10/02/16 12:00 98.9 76 18 100/66 97 10/02/16 09:00 97 21 10/02/16 08:00 97.6 93 16 106/68 99 10/02/16 04:54 96.6 Result Diagram: 10/02/16 0600 10/02/16 0600 Laboratory Results Laboratory Tests Test 10/02/16 06:00 White Blood Count 11.9 TH/MM3 Red Blood Count 3.78 MIL/MM3 Hemoglobin 11.5 GM/DL Hematocrit 34.6 % Mean Corpuscular Volume 91.3 FL Mean Corpuscular Hemoglobin 30.4 PG Mean Corpuscular Hemoglobin 33.3 % Concent Red Cell Distribution Width 19.9 % Platelet Count 366 TH/MM3 Mean Platelet Volume 6.9 FL Neutrophils (%) (Auto) 68.9 % Lymphocytes (%) (Auto) 11.7 % Monocytes (%) (Auto) 14.6 % Eosinophils (%) (Auto) 0.6 % Basophils (%) (Auto) 4.2 % Neutrophils # (Auto) 8.2 TH/MM3 Lymphocytes # (Auto) 1.4 TH/MM3 Monocytes # (Auto) 1.7 TH/MM3 Eosinophils # (Auto) 0.1 TH/MM3 Basophils # (Auto) 0.5 TH/MM3 CBC Comment DIFF FINAL Differential Comment Sodium Level 135 MEQ/L Potassium Level 3.4 MEQ/L Chloride Level 101 MEQ/L Carbon Dioxide Level 26.5 MEQ/L Anion Gap 8 MEQ/L Blood Urea Nitrogen 6 MG/DL Creatinine 0.40 MG/DL Estimat Glomerular Filtration 157 ML/MIN Rate Random Glucose 120 MG/DL Calcium Level 8.4 MG/DL Objective Remarks GENERAL: nad SKIN: Warm and dry. NECK: Supple, trachea midline. No JVD or lymphadenopathy. LYMPHATIC: No adenopathy. CARDIOVASCULAR: Regular rate and rhythm without murmurs. RESPIRATORY: Breath sounds equal bilaterally. No accessory muscle use. GASTROINTESTINAL: Abdomen soft, non-tender, nondistended. EXTREMITIES: No cyanosis, or edema. Assessment/Plan Problem List: (1) Physical deconditioning Status: Acute (2) Lung cancer Status: Acute (3) Severe anemia Status: Acute (4) Cellulitis Status: Acute (5) Malnutrition Status: Acute Problem Qualifiers (1) Cellulitis: Qualified Code: L03.119 - Cellulitis of lower extremity, unspecified laterality Ha Rebolledo MD Oct 03, 2016 00:26
== END 2016-10-02 13:10 | disposition home or self-care (01) | DRG 181 ==
LOC: PHED 09:24 → PHEDA 12:36 → PH3B 15:42
PROVIDERS: ADMIT Hospitalist; ATTEND Hospitalist
PROC: 30233N1 Transfusion of Nonautologous Red Blood Cells into Peripheral Vein, Percutaneous Approach (ICD-10-PCS; principal; 2016-10-01)
DX: C34.11 Malignant neoplasm of upper lobe, right bronchus or lung (principal); L03.115 Cellulitis of right lower limb; E46 Unspecified protein-calorie malnutrition; D64.81 Anemia due to antineoplastic chemotherapy; L03.116 Cellulitis of left lower limb; J44.9 Chronic obstructive pulmonary disease, unspecified; Z68.1 Body mass index [BMI] 19.9 or less, adult; E86.0 Dehydration; D63.8 Anemia in other chronic diseases classified elsewhere; F17.210 Nicotine dependence, cigarettes, uncomplicated; E87.6 Hypokalemia; I10 Essential (primary) hypertension; R62.7 Adult failure to thrive
CPT/HCPCS: 36430; 71010; 71275; 76937; 80048; 80053; 81001; 82607; 82747; 84484; 85025; 85610; 85730; 86850; 86900; 86901; 86920; 87040; 93005; 93970; 96360; 96361; 99231; J1650; J1940; J7030; J7040; P9016; Q9967